=== PATIENT | female | born 1960 | race African-American/Black ===

== ENCOUNTER 2018-12-05 08:00 | Emergency (ER) | payer MEDICAID ==
[~2018-12-05] VITALS: Ht 157.5 cm; Wt 117.0 kg
[~2018-12-05 08:00] MED LIST: BENA20TA10; CYCL-108; LOVASTATIN; NAP5EC; OMEP20CA10; TRAM50TA3; TRIA1CAP35
[2018-12-05 11:55] VITALS: BP 159/66
== END 2018-12-05 12:02 | disposition home or self-care (01) ==
LOC: ER 08:24
DX: M79.671 Pain in right foot (principal); M25.571 Pain in right ankle and joints of right foot; M25.471 Effusion, right ankle; M79.89 Other specified soft tissue disorders; E11.9 Type 2 diabetes mellitus without complications; I10 Essential (primary) hypertension; Z79.899 Other long term (current) drug therapy
CPT/HCPCS: 73610; 73630; 99283

== ENCOUNTER 2019-04-21 07:50 | Emergency (ER) | payer MEDICAID ==
[~2019-04-21] VITALS: Ht 160 cm; Wt 113.0 kg
[~2019-04-21 07:50] MED LIST changes: -OMEP20CA10; +OMEP20CA5
[2019-04-21] MEDS ORDERED: IBUPROFEN 600MG TABLET PO ONE (09:15)
[2019-04-21 11:15] VITALS: BP 159/62
== END 2019-04-21 11:30 | disposition home or self-care (01) ==
LOC: ER 08:45
DX: S60.021A Contusion of right index finger without damage to nail, initial encounter (principal); W22.01XA Walked into wall, initial encounter; Y93.89 Activity, other specified; Y92.89 Other specified places as the place of occurrence of the external cause
CPT/HCPCS: 29130; 73140; 99283

== ENCOUNTER 2019-07-14 19:23 | Inpatient (IN) | payer MEDICAID ==
[~2019-07-14] VITALS: Ht 160 cm; Wt 133.8 kg
[~2019-07-14 19:23] MED LIST changes: -TRAM50TA3; +TRAM50TA3 PO
[2019-07-14 21:30] LABS: BASOPHILS % 0.8 % (0.0-2.0); EOSINOPHILS % 1.3 % (0.0-5.0); HEMATOCRIT. 33.6 % (36.0-48.0); LYMPHOCYTES % 15.2 % (20.0-50.0); MEAN CORPUSCULAR HEMOGLOBIN 28.3 pg (28.0-32.0); MEAN CORPUSCULAR VOLUME 86.1 fL (81.0-99.0); MEAN PLATELET VOLUME 9.5 fl (7.4-10.4); MONOCYTES % 7.9 % (2.0-8.0); NEUTROPHILS % 74.8 % (40.0-76.0); PLATELET 200 x1000/uL (130-400); RED CELL DISTRIBUTION WIDTH 15.5 % (11.6-14.6)
[2019-07-14 21:35] LABS: CHLORIDE 116 mEq/L (98-107)
[2019-07-14 21:36] LABS: INR 0.8; PARTIAL THROMBOPLASTIN TIME 27.3 sec (23.4-31.0)
[2019-07-14 21:46] LABS: PROTHROMBIN TIME 8.7 sec (9.6-11.0)
[2019-07-14] MEDS ORDERED: FUROSEMIDE 40MG/4ML VIAL IVP ONE (23:15)
[2019-07-14] MEDS ORDERED: CLONIDINE 0.1MG TABLET PO ONE (23:15)
[2019-07-14] MEDS ORDERED: ASPIRIN 81MG TABLET PO ONE (23:15)
[2019-07-15] MEDS ORDERED: CHLO25TA2 MT (11:50)
[2019-07-15] MEDS ORDERED: LEVO137T2 MT (11:50)
[2019-07-15] MEDS ORDERED: METH4TAB MT (11:50)
[2019-07-15] MEDS ORDERED: TRAM50TA3 MT (11:50)
[2019-07-15] MEDS ORDERED: AMLO10TA80 MT (11:50)
[2019-07-15] MEDS ORDERED: HYDR200T35 MT (11:50)
[2019-07-15] MEDS ORDERED: LISI-604 MT (11:50)
[2019-07-15] MEDS ORDERED: HYDR-4134 MT (11:50)
[2019-07-15 12:00] VITALS: BP 155/70
[2019-07-15] MEDS ORDERED: DOCUSATE SODIUM 100MG CAPSULE PO PRN (12:00)
[2019-07-15] MEDS ORDERED: ONDANSETRON HCL 4MG/2ML INJ IV PRN (12:00)
[2019-07-15] MEDS ORDERED: CLONIDINE 0.1MG TABLET PO PRN (12:00)
[2019-07-15] MEDS ORDERED: IPRATROPIUM/ALBUTEROL 0.5-3(2.5)MG/3ML NEB HHN PRN (12:00)
[2019-07-15] MEDS ORDERED: LORAZEPAM 0.5MG TABLET PO PRN (12:00)
[2019-07-15] MEDS ORDERED: HYDROCODONE/ACETAMINOPHEN 5/325MG TABLET PO PRN (12:00)
[2019-07-15] MEDS ORDERED: ACETAMINOPHEN 325MG TABLET PO PRN (12:00)
[2019-07-15] MEDS: AMLODIPINE 10MG TABLET PO SCH (12:30)
[2019-07-15] MEDS ORDERED: FUROSEMIDE 40MG/4ML VIAL IV SCH (12:30)
[2019-07-15] MEDS: LEVOTHYROXINE SODIUM 137MCG TABLET PO SCH (12:39)
[2019-07-15] MEDS: HYDRALAZINE HCL 25MG TABLET PO SCH ×2 (13:00→17:26)
[2019-07-15 14:43] VITALS: BP 155/70
[2019-07-15 15:38] LABS: PHOSPHORUS 5.4 mg/dL (2.5-4.9)
[2019-07-15 16:15] LABS: CLARITY URINE CLEAR (CLEAR); COLOR URINE YELLOW (YELLOW); KETONES URINE NEGATIVE (NEGATIVE); LEUKOCYTE ESTERASE URINE NEGATIVE (NEGATIVE); NITRITE URINE NEGATIVE (NEGATIVE); OCCULT BLOOD URINE TRACE (NEGATIVE); PH URINE 6.5 (4.5-8.0); PROTEIN URINE 4+ (NEGATIVE); SPECIFIC GRAVITY URINE 1.015 (1.005-1.030); UROBILINOGEN URINE 0.2 E.U./dL (0.2-1.0)
[2019-07-15 16:28] LABS: CANNABINOID URINE SCREEN NEGATIVE (NEGATIVE); METHADONE URINE SCREEN NEGATIVE (NEGATIVE); OPIATES URINE SCREEN NEGATIVE (NEGATIVE); PHENCYCLIDINE URINE SCREEN NEGATIVE (NEGATIVE)
[2019-07-15 16:29] LABS: *AMPHETAMINES SCREEN URINE NEGATIVE (NEGATIVE); *BARBITURATES SCREEN URINE NEGATIVE (NEGATIVE); *BENZODIAZEPINES SCREEN URINE NEGATIVE (NEGATIVE); *COCAINE SCREEN URINE NEGATIVE (NEGATIVE)
[2019-07-15 16:31] VITALS: BP 140/84
[2019-07-15 20:00] VITALS: BP 157/74
[2019-07-16] VITALS (7 sets, daily range): BP systolic 120–156; BP diastolic 49–70
[2019-07-16 07:28] LABS: BASOPHILS % 0.5 % (0.0-2.0); EOSINOPHILS % 1.6 % (0.0-5.0); HEMATOCRIT. 27.3 % (36.0-48.0); HEMOGLOBIN. 8.9 g/dL (12.0-16.0); LYMPHOCYTES % 19.5 % (20.0-50.0); MEAN CORPUSCULAR HEMOGLOBIN 28.2 pg (28.0-32.0); MEAN CORPUSCULAR VOLUME 86.2 fL (81.0-99.0); MEAN PLATELET VOLUME 9.6 fl (7.4-10.4); MONOCYTES % 10.3 % (2.0-8.0); NEUTROPHILS % 68.1 % (40.0-76.0); PLATELET 188 x1000/uL (130-400); RED BLOOD CELL COUNT 3.17 mill/uL (4.2-5.4); RED CELL DISTRIBUTION WIDTH 15.2 % (11.6-14.6)
[2019-07-16 07:42] LABS: PHOSPHORUS 5.6 mg/dL (2.5-4.9)
[2019-07-16] MEDS: HYDRALAZINE HCL 25MG TABLET PO SCH ×3 (08:51→17:56)
[2019-07-16] MEDS: AMLODIPINE 10MG TABLET PO SCH (08:51)
[2019-07-16] MEDS: LEVOTHYROXINE SODIUM 137MCG TABLET PO SCH (08:51)
[2019-07-16] MEDS ORDERED: FUROSEMIDE 40MG TABLET PO SCH (09:00)
[2019-07-16] MEDS ORDERED: DEXTROSE 50% WATER 50ML SYRINGE IV PRN (16:15)
[2019-07-16] MEDS ORDERED: LIP40 PO (16:16)
[2019-07-16] MEDS ORDERED: NIFE30TA83 MT (16:16)
[2019-07-16] MEDS ORDERED: BLOOD SUGAR DIAGNOSTIC STRIP TEST SCH (16:45)
[2019-07-16] MEDS ORDERED: INSULIN LISPRO 100 UNITS/ML SUBCUT SCH (17:15)
[2019-07-16] MEDS ORDERED: ENOXAPARIN 40MG/0.4ML SYR SUBCUT SCH (21:00)
[2019-07-16] MEDS ORDERED: ATORVASTATIN CALCIUM 40MG TABLET PO SCH (21:00)
[2019-07-17] MEDS ORDERED: LEVOTHYROXINE SODIUM 150MCG TABLET PO SCH (06:45)
== END 2019-07-16 20:00 | disposition home or self-care (01) | DRG 469 ==
LOC: ER 19:23 → 5WST 07-15 00:50 → EDBEDREQ 07-15 00:52 → ENRESERV 07-15 10:26
PROVIDERS: ADMIT Internal Medicine; ATTEND Internal Medicine
DX: N17.9 Acute kidney failure, unspecified (principal); J96.00 Acute respiratory failure, unspecified whether with hypoxia or hypercapnia; E43 Unspecified severe protein-calorie malnutrition; I13.0 Hypertensive heart and chronic kidney disease with heart failure and stage 1 through stage 4 chronic kidney disease, or unspecified chronic kidney disease; E11.22 Type 2 diabetes mellitus with diabetic chronic kidney disease; I50.9 Heart failure, unspecified; N18.4 Chronic kidney disease, stage 4 (severe); D64.9 Anemia, unspecified; E03.9 Hypothyroidism, unspecified; E78.5 Hyperlipidemia, unspecified; I16.0 Hypertensive urgency; M06.9 Rheumatoid arthritis, unspecified; M17.0 Bilateral primary osteoarthritis of knee; Z82.49 Family history of ischemic heart disease and other diseases of the circulatory system; Z83.3 Family history of diabetes mellitus; Z98.891 History of uterine scar from previous surgery; Z68.43 Body mass index [BMI] 50.0-59.9, adult; Z79.84 Long term (current) use of oral hypoglycemic drugs
CPT/HCPCS: 36415; 71045; 73620; 76770; 80048; 80061; 80305; 81003; 82550; 82962; 83036; 83735; 83880; 84100; 84443; 84484; 93005; 93306; 93970; 99285; J1940

== ENCOUNTER 2022-04-10 19:35 | Inpatient (IN) | payer MEDICAID ==
[~2022-04-10] VITALS: Ht 160 cm; Wt 118.8 kg
[~2022-04-10 19:35] MED LIST changes: +ASPI-1497 PO; +ATOR20TA65 MT; -BENA20TA10; +CYAN-50 MT; -CYCL-108; +FERR325T6 MT; +FURO40TA5 PO; +INSU100C6 SQ; +INSU100I28 SQ; +LEVO200T8 MT; -LOVASTATIN; -NAP5EC; +NIFE-32 PO; -OMEP20CA5; +PANT40TA51 PO; -TRAM50TA3 PO; -TRIA1CAP35
[2022-04-10 20:50] LABS: HEMATOCRIT. 34.1 % (36.0-48.0); HEMOGLOBIN. 10.6 g/dL (12.0-16.0); MEAN CORPUSCULAR HEMOGLOBIN 26.1 pg (28.0-32.0); MEAN CORPUSCULAR VOLUME 84.2 fL (81.0-99.0); MEAN PLATELET VOLUME 9.8 fl (7.4-10.4); PLATELET 185 x1000/uL (130-400); RED BLOOD CELL COUNT 4.05 mill/uL (4.2-5.4); RED CELL DISTRIBUTION WIDTH 14.3 % (11.6-14.6)
[2022-04-10 20:59] LABS: CHLORIDE 111 mEq/L (98-107)
[2022-04-10 21:12] LABS: BG BASE EXCESS -5.5 mmol/L (-2.0-2.0); BG CARBOXYHEMOGLOBIN 1.4 % (0.5-1.5); BG DEOXYHEMOGLOBIN 19.6 % (0.0-5.0); BG FRACTION INSPIRED OXYGEN 100; BG HCO3 ACT 19.4 mmol/L (22.0-26.0); BG METHEMOGLOBIN 0.2 % (0.0-1.5); BG OXYGEN SATURATION 80.1 % (92.0-98.5); BG OXYHEMOGLOBIN 78.8 % (94.0-97.0); BG PCO2 35.9 mmHg (35.0-45.0); BG PO2 46.2 mmHg (75.0-100.0); BG SAMPLE SITE LEFT RADIAL; BG VENT MODE MASK - NRB
[2022-04-10 22:13] LABS: PLATELET ESTIMATE NORMAL
[2022-04-10] MEDS ORDERED: ENOXAPARIN 80MG/0.8ML SYR SUBCUT ONE (22:15)
[2022-04-10 23:24] LABS: BG BASE EXCESS -6.2 mmol/L (-2.0-2.0); BG CARBOXYHEMOGLOBIN 0.5 % (0.5-1.5); BG DEOXYHEMOGLOBIN 2.6 % (0.0-5.0); BG FRACTION INSPIRED OXYGEN 100; BG HCO3 ACT 18.7 mmol/L (22.0-26.0); BG METHEMOGLOBIN 0.2 % (0.0-1.5); BG OXYGEN SATURATION 97.4 % (92.0-98.5); BG OXYHEMOGLOBIN 96.7 % (94.0-97.0); BG PCO2 34.9 mmHg (35.0-45.0); BG PH 7.346 (7.350-7.450); BG PO2 105.3 mmHg (75.0-100.0); BG SAMPLE SITE LEFT RADIAL; BG TOTAL HEMOGLOBIN 11.6 g/dL (12.0-18.0); BG VENT MODE MASK - BIPAP
[2022-04-11] VITALS (11 sets, daily range): BP systolic 154–193; BP diastolic 76–93
[2022-04-11] MEDS: CLONIDINE 0.1MG TABLET PO PRN (02:51)
[2022-04-11] MEDS ORDERED: CEFTRIAXONE 1 G PREMIX 50 ML IV SCH (06:30)
[2022-04-11] MEDS ORDERED: DEXTROSE 50% WATER 50ML SYRINGE IV PRN (06:30)
[2022-04-11] MEDS ORDERED: AZITHROMYCIN 500 MG in DEXT 5% WATER 250 ML IV SCH (06:30)
[2022-04-11] MEDS: BLOOD SUGAR DIAGNOSTIC STRIP TEST SCH ×4 (07:30→21:08)
[2022-04-11 07:55] LABS: CLARITY URINE CLOUDY (CLEAR); COLOR URINE YELLOW (YELLOW); KETONES URINE NEGATIVE (NEGATIVE); LEUKOCYTE ESTERASE URINE NEGATIVE (NEGATIVE); NITRITE URINE NEGATIVE (NEGATIVE); OCCULT BLOOD URINE TRACE (NEGATIVE); PROTEIN URINE 4+ (NEGATIVE); SPECIFIC GRAVITY URINE 1.021 (1.005-1.030); UROBILINOGEN URINE 0.2 E.U./dL (0.2-1.0)
[2022-04-11] MEDS: IPRATROPIUM/ALBUTEROL 0.5-3(2.5)MG/3ML NEB HHN PRN (07:59)
[2022-04-11] MEDS ORDERED: TACR1CAP PO (08:51)
[2022-04-11] MEDS: AZITHROMYCIN 500MG in DEXTROSE 5% WATER 250ML IV SCH (09:10)
[2022-04-11] MEDS: INSULIN LISPRO 100 UNITS/ML SUBCUT SCH ×4 (09:14→21:32)
[2022-04-11] MEDS ORDERED: FUROSEMIDE 40MG/4ML VIAL IVP SCH (09:30)
[2022-04-11] MEDS: CEFTRIAXONE 1,000 MG in DEXTROSE 5% WATER 50 ML IV SCH (10:28)
[2022-04-11 11:24] LABS: *AMPHETAMINES SCREEN URINE NEGATIVE (NEGATIVE); *BARBITURATES SCREEN URINE NEGATIVE (NEGATIVE); *BENZODIAZEPINES SCREEN URINE NEGATIVE (NEGATIVE); *COCAINE SCREEN URINE NEGATIVE (NEGATIVE); CANNABINOID URINE SCREEN NEGATIVE (NEGATIVE); METHADONE URINE SCREEN NEGATIVE (NEGATIVE); OPIATES URINE SCREEN NEGATIVE (NEGATIVE); PHENCYCLIDINE URINE SCREEN NEGATIVE (NEGATIVE)
[2022-04-11 13:17] LABS: CREATINE KINASE 68 IU/L (26-192); CREATINE KINASE MB FRACTION < 1.0 ng/mL (0.5-3.6); HDL CHOLESTEROL 68 mg/dL (40-59); LDL CHOLESTEROL 49 mg/dL (5-100)
[2022-04-11] MEDS ORDERED: AMLODIPINE 10MG TABLET PO SCH (13:30)
[2022-04-11] MEDS: PANTOPRAZOLE 40MG DR TABLET PO SCH (15:11)
[2022-04-11] MEDS: ISOSORBIDE DINITRATE 10MG TABLET PO SCH ×2 (15:11→17:45)
[2022-04-11] MEDS: TACROLIMUS 1MG CAPSULE PO SCH ×2 (15:11→21:35)
[2022-04-11] MEDS: ATORVASTATIN CALCIUM 20MG TABLET PO SCH (15:12)
[2022-04-11] MEDS: HYDRALAZINE HCL 25MG TABLET PO SCH ×2 (15:12→23:00)
[2022-04-11 16:52] LABS: CREATINE KINASE 73 IU/L (26-192); CREATINE KINASE MB FRACTION < 1.0 ng/mL (0.5-3.6)
[2022-04-11] MEDS: LEVOTHYROXINE SODIUM 200MCG TABLET PO SCH (17:44)
[2022-04-11] MEDS: FUROSEMIDE 40MG/4ML VIAL IVP SCH (17:44)
[2022-04-11] MEDS: NIFEDIPINE XL 60MG TAB PO SCH (21:35)
[2022-04-11] MEDS: ENOXAPARIN 40MG/0.4ML SYR SUBCUT SCH (21:36)
[2022-04-12] VITALS (14 sets, daily range): BP systolic 129–162; BP diastolic 53–97
[2022-04-12] MEDS: HYDRALAZINE HCL 25MG TABLET PO SCH ×3 (06:16→22:35)
[2022-04-12] MEDS: FUROSEMIDE 40MG/4ML VIAL IVP SCH (06:16)
[2022-04-12] MEDS: INSULIN LISPRO 100 UNITS/ML SUBCUT SCH ×4 (08:00→21:35)
[2022-04-12] MEDS: BLOOD SUGAR DIAGNOSTIC STRIP TEST SCH ×4 (08:12→21:30)
[2022-04-12] MEDS: CEFTRIAXONE 1,000 MG in DEXTROSE 5% WATER 50 ML IV SCH (08:37)
[2022-04-12] MEDS: NIFEDIPINE XL 60MG TAB PO SCH ×2 (08:37→21:31)
[2022-04-12] MEDS: ISOSORBIDE DINITRATE 10MG TABLET PO SCH ×3 (08:38→17:15)
[2022-04-12] MEDS: TACROLIMUS 1MG CAPSULE PO SCH ×2 (08:38→17:15)
[2022-04-12] MEDS: PANTOPRAZOLE 40MG DR TABLET PO SCH (08:38)
[2022-04-12] MEDS: LEVOTHYROXINE SODIUM 200MCG TABLET PO SCH (08:38)
[2022-04-12] MEDS: ATORVASTATIN CALCIUM 20MG TABLET PO SCH (08:39)
[2022-04-12 08:47] LABS: BG BASE EXCESS -6.1 mmol/L (-2.0-2.0); BG CARBOXYHEMOGLOBIN 0.1 % (0.5-1.5); BG DEOXYHEMOGLOBIN 10.8 % (0.0-5.0); BG FRACTION INSPIRED OXYGEN 100; BG HCO3 ACT 19.1 mmol/L (22.0-26.0); BG METHEMOGLOBIN 0.2 % (0.0-1.5); BG OXYGEN SATURATION 89.2 % (92.0-98.5); BG OXYHEMOGLOBIN 88.9 % (94.0-97.0); BG PCO2 36.5 mmHg (35.0-45.0); BG PH 7.336 (7.350-7.450); BG PO2 57.1 mmHg (75.0-100.0); BG SAMPLE SITE RIGHT RADIAL; BG TOTAL HEMOGLOBIN 10.6 g/dL (12.0-18.0); BG TOTAL RESPIRATORY RATE 50 b/min; BG VENT MODE MASK - BIPAP
[2022-04-12] MEDS: AZITHROMYCIN 500MG in DEXTROSE 5% WATER 250ML IV SCH (09:02)
[2022-04-12] MEDS ORDERED: POLYETHYLENE GLYCOL 3350 (17GM) 1 DOSE PACK PO NR (14:15)
[2022-04-12] MEDS: IPRATROPIUM/ALBUTEROL 0.5-3(2.5)MG/3ML NEB HHN SCH (20:38)
[2022-04-12] MEDS: ENOXAPARIN 40MG/0.4ML SYR SUBCUT SCH (21:31)
[2022-04-13] VITALS (49 sets, daily range): BP systolic 104–169; BP diastolic 42–123
[2022-04-13] MEDS: IPRATROPIUM/ALBUTEROL 0.5-3(2.5)MG/3ML NEB HHN SCH ×5 (00:40→21:10)
[2022-04-13] MEDS: HYDRALAZINE HCL 25MG TABLET PO SCH ×3 (05:55→22:00)
[2022-04-13 05:57] LABS: BASOPHILS % 0.3 % (0.0-2.0); EOSINOPHILS % 0.2 % (0.0-5.0); HEMATOCRIT. 30.8 % (36.0-48.0); HEMOGLOBIN. 9.7 g/dL (12.0-16.0); LYMPHOCYTES % 7.7 % (20.0-50.0); MEAN CORPUSCULAR HEMOGLOBIN 26.3 pg (28.0-32.0); MEAN CORPUSCULAR VOLUME 83.4 fL (81.0-99.0); MEAN PLATELET VOLUME 10.4 fl (7.4-10.4); MONOCYTES % 5.9 % (2.0-8.0); NEUTROPHILS % 85.9 % (40.0-76.0); PLATELET 202 x1000/uL (130-400); RED CELL DISTRIBUTION WIDTH 14.8 % (11.6-14.6)
[2022-04-13 06:20] LABS: CHLORIDE 111 mEq/L (98-107)
[2022-04-13 06:29] LABS: PHOSPHORUS 4.3 mg/dL (2.5-4.9)
[2022-04-13] MEDS: BLOOD SUGAR DIAGNOSTIC STRIP TEST SCH ×4 (07:30→23:53)
[2022-04-13] MEDS: LEVOTHYROXINE SODIUM 150MCG TABLET PO SCH (07:30)
[2022-04-13] MEDS: INSULIN LISPRO 100 UNITS/ML SUBCUT SCH ×4 (08:00→23:53)
[2022-04-13] MEDS ORDERED: FENTANYL CITRATE/PF 2,500 MCG in SODIUM CHLORIDE 0.9% 200 ML IV PRN (08:15)
[2022-04-13] MEDS: PROPOFOL 10MG/ML 100ML 100 ML IV PRN ×4 (08:25→18:06)
[2022-04-13] MEDS: FENTANYL 2500MCG/250ML PMX 250 ML IV PRN (08:32)
[2022-04-13] MEDS: NIFEDIPINE XL 60MG TAB PO SCH ×2 (09:00→21:35)
[2022-04-13] MEDS: ATORVASTATIN CALCIUM 20MG TABLET PO SCH (09:00)
[2022-04-13] MEDS: PANTOPRAZOLE 40MG DR TABLET PO SCH (09:00)
[2022-04-13] MEDS: ISOSORBIDE DINITRATE 10MG TABLET PO SCH ×3 (09:00→18:03)
[2022-04-13] MEDS: TACROLIMUS 1MG CAPSULE PO SCH ×2 (09:00→18:03)
[2022-04-13] MEDS ORDERED: ETOMIDATE 2MG/ML 10ML VIAL IV ONE (09:06)
[2022-04-13] MEDS ORDERED: VECURONIUM BROMIDE 10 MG/VIAL IV ONE (09:06)
[2022-04-13] MEDS ORDERED: SODIUM CHLORIDE 0.9% 10ML VIAL ONE (09:06)
[2022-04-13 09:10] LABS: BG BASE EXCESS -8.7 mmol/L (-2.0-2.0); BG CARBOXYHEMOGLOBIN 0.3 % (0.5-1.5); BG FRACTION INSPIRED OXYGEN 100; BG HCO3 ACT 19.8 mmol/L (22.0-26.0); BG METHEMOGLOBIN 0.3 % (0.0-1.5); BG OXYGEN SATURATION 80.9 % (92.0-98.5); BG OXYHEMOGLOBIN 80.4 % (94.0-97.0); BG PCO2 55.2 mmHg (35.0-45.0); BG PH 7.173 (7.350-7.450); BG PO2 54.1 mmHg (75.0-100.0); BG SAMPLE SITE LEFT RADIAL; BG TOTAL HEMOGLOBIN 10.7 g/dL (12.0-18.0); BG VENT MODE VENT - AC
[2022-04-13] MEDS ORDERED: MAGNESIUM 2 G PREMIX 50 ML IV NR (10:00)
[2022-04-13] MEDS ORDERED: MIDAZOLAM HCL 100 MG in SODIUM CHLORIDE 0.9% 80 ML IV PRN (11:45)
[2022-04-13] MEDS: MEROPENEM 1,000 MG in SODIUM CHLORIDE 0.9% 100 ML IV SCH ×2 (11:53→23:52)
[2022-04-13] MEDS ORDERED: VANCOMYCIN 1,750 MG in DEXT 5% WATER 250 ML IV NR (12:00)
[2022-04-13 12:09] LABS: BG BASE EXCESS -8.3 mmol/L (-2.0-2.0); BG CARBOXYHEMOGLOBIN 0.3 % (0.5-1.5); BG DEOXYHEMOGLOBIN 1.5 % (0.0-5.0); BG HCO3 ACT 19.6 mmol/L (22.0-26.0); BG METHEMOGLOBIN 0.4 % (0.0-1.5); BG OXYGEN SATURATION 98.5 % (92.0-98.5); BG OXYHEMOGLOBIN 97.8 % (94.0-97.0); BG PCO2 51.2 mmHg (35.0-45.0); BG PO2 189.4 mmHg (75.0-100.0); BG SAMPLE SITE LEFT RADIAL; BG TOTAL HEMOGLOBIN 10.2 g/dL (12.0-18.0); BG VENT MODE VENT - AC
[2022-04-13] MEDS: AZITHROMYCIN 500MG in DEXTROSE 5% WATER 250ML IV SCH (13:02)
[2022-04-13] MEDS: CEFTRIAXONE 1,000 MG in DEXTROSE 5% WATER 50 ML IV SCH (13:02)
[2022-04-13] MEDS: METHYLPREDNISOLONE SOD SUCC 125 MG/2 ML VIAL IV SCH ×2 (13:21→21:35)
[2022-04-13] MEDS ORDERED: LIDOCAINE HCL 1% 10 MG/ML 10ML VIAL ONE (13:41)
[2022-04-13] MEDS: SULFAMETHOXAZOLE/TRIMETHOPRIM 200-40 MG/5ML 5ML ORAL SYR PO SCH ×2 (14:51→21:35)
[2022-04-13 17:15] LABS: BG BASE EXCESS -8.2 mmol/L (-2.0-2.0); BG CARBOXYHEMOGLOBIN 0.3 % (0.5-1.5); BG DEOXYHEMOGLOBIN 1.9 % (0.0-5.0); BG HCO3 ACT 18.8 mmol/L (22.0-26.0); BG METHEMOGLOBIN 0.6 % (0.0-1.5); BG OXYGEN SATURATION 98.1 % (92.0-98.5); BG OXYHEMOGLOBIN 97.2 % (94.0-97.0); BG PH 7.238 (7.350-7.450); BG PO2 138.3 mmHg (75.0-100.0); BG SAMPLE SITE LEFT RADIAL; BG TOTAL HEMOGLOBIN 9.5 g/dL (12.0-18.0); BG VENT MODE VENT - AC
[2022-04-13] MEDS: ENOXAPARIN 40MG/0.4ML SYR SUBCUT SCH (21:35)
[2022-04-14] VITALS (90 sets, daily range): BP systolic 71–147; BP diastolic 41–67
[2022-04-14] MEDS: MIDAZOLAM 100MG/100ML PMX 100 ML IV PRN (02:00)
[2022-04-14] MEDS: PROPOFOL 10MG/ML 100ML 100 ML IV PRN ×5 (02:01→20:54)
[2022-04-14] MEDS: IPRATROPIUM/ALBUTEROL 0.5-3(2.5)MG/3ML NEB HHN PRN (02:16)
[2022-04-14] MEDS: METHYLPREDNISOLONE SOD SUCC 125 MG/2 ML VIAL IV SCH ×3 (05:58→21:18)
[2022-04-14] MEDS: HYDRALAZINE HCL 25MG TABLET PO SCH (05:58)
[2022-04-14] MEDS: INSULIN LISPRO 100 UNITS/ML SUBCUT SCH ×3 (05:58→17:47)
[2022-04-14] MEDS: LEVOTHYROXINE SODIUM 150MCG TABLET PO SCH (05:59)
[2022-04-14] MEDS: BLOOD SUGAR DIAGNOSTIC STRIP TEST SCH ×3 (05:59→17:55)
[2022-04-14 06:00] LABS: HEMATOCRIT. 28.4 % (36.0-48.0); HEMOGLOBIN. 8.9 g/dL (12.0-16.0); MEAN CORPUSCULAR HEMOGLOBIN 26.5 pg (28.0-32.0); MEAN CORPUSCULAR VOLUME 84.4 fL (81.0-99.0); MEAN PLATELET VOLUME 10.5 fl (7.4-10.4); PLATELET 159 x1000/uL (130-400); RED BLOOD CELL COUNT 3.36 mill/uL (4.2-5.4); RED CELL DISTRIBUTION WIDTH 14.3 % (11.6-14.6)
[2022-04-14] MEDS: SULFAMETHOXAZOLE/TRIMETHOPRIM 200-40 MG/5ML 5ML ORAL SYR PO SCH ×3 (06:00→21:18)
[2022-04-14] MEDS: FENTANYL 2500MCG/250ML PMX 250 ML IV PRN (06:21)
[2022-04-14 06:23] LABS: CHLORIDE 107 mEq/L (98-107); PHOSPHORUS 7.6 mg/dL (2.5-4.9)
[2022-04-14] MEDS ORDERED: LIDOCAINE HCL/PF 1% 10 MG/ML 5ML VIAL ONE (07:15)
[2022-04-14] MEDS: AZITHROMYCIN 500MG in DEXTROSE 5% WATER 250ML IV SCH (07:58)
[2022-04-14] MEDS: IPRATROPIUM/ALBUTEROL 0.5-3(2.5)MG/3ML NEB HHN SCH ×3 (08:12→20:23)
[2022-04-14] MEDS ORDERED: INSULIN GLARGINE 100 UNITS/ML SUBCUT NR (08:30)
[2022-04-14] MEDS: ATORVASTATIN CALCIUM 20MG TABLET PO SCH (09:25)
[2022-04-14] MEDS: TACROLIMUS 1MG CAPSULE PO SCH ×2 (09:25→17:16)
[2022-04-14] MEDS: PANTOPRAZOLE 40MG DR TABLET PO SCH (09:25)
[2022-04-14] MEDS: SODIUM BICARBONATE 150 MEQ in DEXTROSE 5% WATER 1,000 ML IV SCH (09:29)
[2022-04-14 09:52] LABS: BG BASE EXCESS -8.3 mmol/L (-2.0-2.0); BG CARBOXYHEMOGLOBIN 0.4 % (0.5-1.5); BG DEOXYHEMOGLOBIN 3.5 % (0.0-5.0); BG FRACTION INSPIRED OXYGEN 60; BG HCO3 ACT 17.2 mmol/L (22.0-26.0); BG METHEMOGLOBIN 0.3 % (0.0-1.5); BG OXYGEN SATURATION 96.5 % (92.0-98.5); BG OXYHEMOGLOBIN 95.8 % (94.0-97.0); BG PCO2 35.2 mmHg (35.0-45.0); BG PH 7.307 (7.350-7.450); BG PO2 88.5 mmHg (75.0-100.0); BG SAMPLE SITE RIGHT RADIAL; BG TOTAL HEMOGLOBIN 7.6 g/dL (12.0-18.0); BG VENT MODE VENT - AC
[2022-04-14] MEDS: MEROPENEM 1,000 MG in SODIUM CHLORIDE 0.9% 100 ML IV SCH ×2 (10:28→22:02)
[2022-04-14] MEDS ORDERED: NOREPINEPHRINE 32 MG in DEXT 5% WATER 218 ML IV PRN (10:30)
[2022-04-14] MEDS ORDERED: INSULIN LISPRO 100 UNITS/ML SUBCUT NR ×2 (12:00→18:00)
[2022-04-14] MEDS: MIDODRINE HCL 5MG TABLET PO SCH ×2 (13:00→17:15)
[2022-04-14] MEDS ORDERED: VANCOMYCIN 500MG PREMIX 100 ML IV SCH (14:00)
[2022-04-14 15:48] LABS: PLATELET ESTIMATE NORMAL
[2022-04-14] MEDS: ENOXAPARIN 40MG/0.4ML SYR SUBCUT SCH (20:54)
[2022-04-15] VITALS (97 sets, daily range): BP systolic 111–170; BP diastolic 46–71
[2022-04-15] MEDS: INSULIN LISPRO 100 UNITS/ML SUBCUT SCH ×5 (00:06→23:24)
[2022-04-15] MEDS: BLOOD SUGAR DIAGNOSTIC STRIP TEST SCH ×5 (00:06→23:24)
[2022-04-15] MEDS: IPRATROPIUM/ALBUTEROL 0.5-3(2.5)MG/3ML NEB HHN SCH ×4 (02:21→20:52)
[2022-04-15] MEDS: PROPOFOL 10MG/ML 100ML 100 ML IV PRN (03:41)
[2022-04-15 05:34] LABS: HEMATOCRIT. 27.6 % (36.0-48.0); HEMOGLOBIN. 8.7 g/dL (12.0-16.0); MEAN CORPUSCULAR HEMOGLOBIN 26.2 pg (28.0-32.0); MEAN PLATELET VOLUME 10.3 fl (7.4-10.4); PLATELET 173 x1000/uL (130-400); RED BLOOD CELL COUNT 3.33 mill/uL (4.2-5.4); RED CELL DISTRIBUTION WIDTH 13.9 % (11.6-14.6)
[2022-04-15] MEDS: LEVOTHYROXINE SODIUM 150MCG TABLET PO SCH (05:39)
[2022-04-15] MEDS: METHYLPREDNISOLONE SOD SUCC 125 MG/2 ML VIAL IV SCH ×3 (05:39→21:44)
[2022-04-15] MEDS: SULFAMETHOXAZOLE/TRIMETHOPRIM 200-40 MG/5ML 5ML ORAL SYR PO SCH ×3 (05:40→21:45)
[2022-04-15 05:43] LABS: CHLORIDE 103 mEq/L (98-107)
[2022-04-15 07:52] LABS: BG BASE EXCESS -6.7 mmol/L (-2.0-2.0); BG CARBOXYHEMOGLOBIN 0.3 % (0.5-1.5); BG DEOXYHEMOGLOBIN 7.9 % (0.0-5.0); BG HCO3 ACT 19.8 mmol/L (22.0-26.0); BG METHEMOGLOBIN 0.3 % (0.0-1.5); BG OXYGEN SATURATION 92.1 % (92.0-98.5); BG OXYHEMOGLOBIN 91.5 % (94.0-97.0); BG PCO2 43.9 mmHg (35.0-45.0); BG PH 7.272 (7.350-7.450); BG PO2 69.5 mmHg (75.0-100.0); BG SAMPLE SITE RIGHT RADIAL; BG TOTAL HEMOGLOBIN 8.9 g/dL (12.0-18.0); BG VENT MODE VENT - AC
[2022-04-15] MEDS: AZITHROMYCIN 500MG in DEXTROSE 5% WATER 250ML IV SCH (08:15)
[2022-04-15] MEDS: ATORVASTATIN CALCIUM 20MG TABLET PO SCH (08:26)
[2022-04-15] MEDS: PANTOPRAZOLE SODIUM 40 MG/VIAL IV SCH (08:26)
[2022-04-15] MEDS: MIDODRINE HCL 5MG TABLET PO SCH ×3 (08:26→16:19)
[2022-04-15] MEDS ORDERED: BISACODYL 10MG SUPP PR NR (10:00)
[2022-04-15] MEDS: TACROLIMUS 1MG/PACKET GT SCH ×2 (10:15→16:19)
[2022-04-15] MEDS: MEROPENEM 1,000 MG in SODIUM CHLORIDE 0.9% 100 ML IV SCH ×2 (10:16→23:23)
[2022-04-15] MEDS: INSULIN GLARGINE 100 UNITS/ML SUBCUT SCH (10:16)
[2022-04-15 11:17] LABS: INR 0.9; PARTIAL THROMBOPLASTIN TIME 30.9 sec (23.4-31.0); PROTHROMBIN TIME 10.1 sec (9.6-11.0)
[2022-04-15] MEDS ORDERED: LIDOCAINE HCL 1% 10 MG/ML 10ML VIAL ONE (12:56)
[2022-04-15] MEDS: SODIUM BICARBONATE 150 MEQ in DEXTROSE 5% WATER 1,000 ML IV SCH (14:02)
[2022-04-15] MEDS: FENTANYL 2500MCG/250ML PMX 250 ML IV PRN (16:20)
[2022-04-15 18:22] LABS: PLATELET ESTIMATE NORMAL
[2022-04-15] MEDS: MIDAZOLAM 100MG/100ML PMX 100 ML IV PRN (19:46)
[2022-04-15] MEDS: ENOXAPARIN 40MG/0.4ML SYR SUBCUT SCH (21:45)
[2022-04-16] VITALS (61 sets, daily range): BP systolic 119–166; BP diastolic 52–79
[2022-04-16] MEDS: IPRATROPIUM/ALBUTEROL 0.5-3(2.5)MG/3ML NEB HHN SCH ×4 (02:25→20:41)
[2022-04-16] MEDS: BLOOD SUGAR DIAGNOSTIC STRIP TEST SCH ×4 (05:18→23:45)
[2022-04-16 05:38] LABS: HEMATOCRIT. 25.1 % (36.0-48.0); MEAN CORPUSCULAR HEMOGLOBIN 26.1 pg (28.0-32.0); MEAN CORPUSCULAR VOLUME 82.4 fL (81.0-99.0); MEAN PLATELET VOLUME 10.4 fl (7.4-10.4); PLATELET 192 x1000/uL (130-400); RED BLOOD CELL COUNT 3.05 mill/uL (4.2-5.4); RED CELL DISTRIBUTION WIDTH 14.3 % (11.6-14.6)
[2022-04-16 05:54] LABS: CHLORIDE 101 mEq/L (98-107)
[2022-04-16] MEDS: SULFAMETHOXAZOLE/TRIMETHOPRIM 200-40 MG/5ML 5ML ORAL SYR PO SCH ×3 (05:56→21:35)
[2022-04-16] MEDS: METHYLPREDNISOLONE SOD SUCC 125 MG/2 ML VIAL IV SCH ×3 (05:56→21:36)
[2022-04-16] MEDS: INSULIN LISPRO 100 UNITS/ML SUBCUT SCH ×7 (05:57→23:45)
[2022-04-16] MEDS: LEVOTHYROXINE SODIUM 150MCG TABLET PO SCH (05:58)
[2022-04-16] MEDS ORDERED: BISACODYL 10MG SUPP PR PRN (06:00)
[2022-04-16 06:43] LABS: PHOSPHORUS 8.4 mg/dL (2.5-4.9)
[2022-04-16 07:31] LABS: BG BASE EXCESS -2.5 mmol/L (-2.0-2.0); BG CARBOXYHEMOGLOBIN 0.1 % (0.5-1.5); BG DEOXYHEMOGLOBIN 4.5 % (0.0-5.0); BG FRACTION INSPIRED OXYGEN 45; BG HCO3 ACT 22.9 mmol/L (22.0-26.0); BG METHEMOGLOBIN 0.2 % (0.0-1.5); BG OXYGEN SATURATION 95.5 % (92.0-98.5); BG OXYHEMOGLOBIN 95.2 % (94.0-97.0); BG PCO2 41.9 mmHg (35.0-45.0); BG PH 7.355 (7.350-7.450); BG PO2 89.1 mmHg (75.0-100.0); BG SAMPLE SITE RIGHT RADIAL; BG TOTAL HEMOGLOBIN 7.8 g/dL (12.0-18.0); BG VENT MODE VENT - AC
[2022-04-16] MEDS ORDERED: LIDOCAINE HCL 1% 10 MG/ML 10ML VIAL ONE (07:57)
[2022-04-16] MEDS ORDERED: HEPARIN 1000 UNITS/ML 10ML ONE (07:58)
[2022-04-16] MEDS: MIDODRINE HCL 5MG TABLET PO SCH ×3 (09:00→16:52)
[2022-04-16] MEDS: PANTOPRAZOLE SODIUM 40 MG/VIAL IV SCH (09:10)
[2022-04-16] MEDS: ATORVASTATIN CALCIUM 20MG TABLET PO SCH (09:10)
[2022-04-16] MEDS: TACROLIMUS 1MG/PACKET GT SCH ×2 (09:11→17:53)
[2022-04-16] MEDS: INSULIN GLARGINE 100 UNITS/ML SUBCUT SCH (09:15)
[2022-04-16] MEDS ORDERED: INSULIN GLARGINE 100 UNITS/ML SUBCUT NR (10:00)
[2022-04-16] MEDS ORDERED: PROPOFOL 10MG/ML 100ML 100 ML IV PRN (10:00)
[2022-04-16] MEDS: MEROPENEM 1,000 MG in SODIUM CHLORIDE 0.9% 100 ML IV SCH ×2 (11:04→23:35)
[2022-04-16] MEDS: CALCIUM ACETATE 667MG CAPSULE NG SCH ×2 (13:29→21:35)
[2022-04-16] MEDS: CLONIDINE 0.1MG TABLET PO PRN (15:35)
[2022-04-16] MEDS: ENOXAPARIN 40MG/0.4ML SYR SUBCUT SCH (21:35)
[2022-04-17] VITALS (97 sets, daily range): BP systolic 99–186; BP diastolic 47–152
[2022-04-17] MEDS: FENTANYL 2500MCG/250ML PMX 250 ML IV PRN (00:32)
[2022-04-17] MEDS: IPRATROPIUM/ALBUTEROL 0.5-3(2.5)MG/3ML NEB HHN SCH ×4 (00:41→20:30)
[2022-04-17 01:37] LABS: PLATELET ESTIMATE NORMAL
[2022-04-17 05:33] LABS: HEMATOCRIT. 25.7 % (36.0-48.0); HEMOGLOBIN. 8.2 g/dL (12.0-16.0); MEAN CORPUSCULAR HEMOGLOBIN 26.3 pg (28.0-32.0); MEAN CORPUSCULAR VOLUME 82.2 fL (81.0-99.0); MEAN PLATELET VOLUME 10.1 fl (7.4-10.4); PLATELET 217 x1000/uL (130-400); RED BLOOD CELL COUNT 3.13 mill/uL (4.2-5.4); RED CELL DISTRIBUTION WIDTH 14.4 % (11.6-14.6)
[2022-04-17] MEDS: SULFAMETHOXAZOLE/TRIMETHOPRIM 200-40 MG/5ML 5ML ORAL SYR PO SCH ×3 (05:37→21:01)
[2022-04-17] MEDS: METHYLPREDNISOLONE SOD SUCC 125 MG/2 ML VIAL IV SCH ×3 (05:37→21:01)
[2022-04-17] MEDS: LEVOTHYROXINE SODIUM 150MCG TABLET PO SCH (05:37)
[2022-04-17] MEDS: CALCIUM ACETATE 667MG CAPSULE NG SCH ×3 (05:37→21:01)
[2022-04-17 05:43] LABS: CHLORIDE 102 mEq/L (98-107)
[2022-04-17] MEDS: INSULIN LISPRO 100 UNITS/ML SUBCUT SCH ×8 (06:04→23:47)
[2022-04-17] MEDS: BLOOD SUGAR DIAGNOSTIC STRIP TEST SCH ×4 (06:07→23:45)
[2022-04-17] MEDS: MIDODRINE HCL 5MG TABLET PO SCH ×3 (09:00→16:17)
[2022-04-17 09:02] LABS: NUCLEATED RED BLOOD CELLS 2 /100 WBC
[2022-04-17 09:05] LABS: PLATELET ESTIMATE NORMAL
[2022-04-17 10:11] LABS: BG BASE EXCESS -1.2 mmol/L (-2.0-2.0); BG CARBOXYHEMOGLOBIN 0.3 % (0.5-1.5); BG DEOXYHEMOGLOBIN 2.6 % (0.0-5.0); BG FRACTION INSPIRED OXYGEN 60; BG METHEMOGLOBIN 0.3 % (0.0-1.5); BG OXYGEN SATURATION 97.4 % (92.0-98.5); BG OXYHEMOGLOBIN 96.8 % (94.0-97.0); BG PH 7.423 (7.350-7.450); BG PO2 102.8 mmHg (75.0-100.0); BG SAMPLE SITE RIGHT RADIAL; BG TOTAL HEMOGLOBIN 9.2 g/dL (12.0-18.0); BG VENT MODE VENT - AC
[2022-04-17] MEDS ORDERED: SODIUM POLYSTYRENE SULFONATE 15 G/60 ML BOT PO NR (10:30)
[2022-04-17] MEDS: PROPOFOL 10MG/ML 100ML 100 ML IV PRN ×2 (10:44→20:59)
[2022-04-17] MEDS: INSULIN GLARGINE 100 UNITS/ML SUBCUT SCH (10:44)
[2022-04-17] MEDS: ATORVASTATIN CALCIUM 20MG TABLET PO SCH (10:45)
[2022-04-17] MEDS: MEROPENEM 1,000 MG in SODIUM CHLORIDE 0.9% 100 ML IV SCH ×2 (10:45→22:04)
[2022-04-17] MEDS: PANTOPRAZOLE SODIUM 40 MG/VIAL IV SCH (10:45)
[2022-04-17] MEDS: CLONIDINE 0.1MG TABLET PO PRN ×2 (10:45→16:26)
[2022-04-17] MEDS: AMLODIPINE 5MG TABLET PO SCH ×2 (10:46→21:02)
[2022-04-17] MEDS: TACROLIMUS 1MG/PACKET GT SCH ×2 (14:29→16:24)
[2022-04-17] MEDS: ENOXAPARIN 40MG/0.4ML SYR SUBCUT SCH (21:04)
[2022-04-18] VITALS (97 sets, daily range): BP systolic 97–174; BP diastolic 53–99
[2022-04-18] MEDS: METHYLPREDNISOLONE SOD SUCC 125 MG/2 ML VIAL IV SCH (05:08)
[2022-04-18] MEDS: CALCIUM ACETATE 667MG CAPSULE NG SCH ×3 (05:08→21:02)
[2022-04-18] MEDS: SULFAMETHOXAZOLE/TRIMETHOPRIM 200-40 MG/5ML 5ML ORAL SYR PO SCH ×3 (05:08→21:03)
[2022-04-18] MEDS: INSULIN LISPRO 100 UNITS/ML SUBCUT SCH ×7 (05:16→17:15)
[2022-04-18] MEDS: BLOOD SUGAR DIAGNOSTIC STRIP TEST SCH ×3 (05:20→17:14)
[2022-04-18 05:56] LABS: HEMATOCRIT. 26.3 % (36.0-48.0); HEMOGLOBIN. 8.4 g/dL (12.0-16.0); MEAN CORPUSCULAR HEMOGLOBIN 26.1 pg (28.0-32.0); MEAN CORPUSCULAR VOLUME 81.8 fL (81.0-99.0); MEAN PLATELET VOLUME 9.9 fl (7.4-10.4); PLATELET 228 x1000/uL (130-400); RED BLOOD CELL COUNT 3.22 mill/uL (4.2-5.4); RED CELL DISTRIBUTION WIDTH 14.3 % (11.6-14.6)
[2022-04-18 06:09] LABS: CHLORIDE 102 mEq/L (98-107)
[2022-04-18 06:49] LABS: PHOSPHORUS 8.5 mg/dL (2.5-4.9)
[2022-04-18 07:37] LABS: BG BASE EXCESS -0.4 mmol/L (-2.0-2.0); BG CARBOXYHEMOGLOBIN 0.3 % (0.5-1.5); BG DEOXYHEMOGLOBIN 9.8 % (0.0-5.0); BG FRACTION INSPIRED OXYGEN 50; BG HCO3 ACT 25.4 mmol/L (22.0-26.0); BG METHEMOGLOBIN 0.2 % (0.0-1.5); BG OXYGEN SATURATION 90.2 % (92.0-98.5); BG OXYHEMOGLOBIN 89.7 % (94.0-97.0); BG PCO2 47.1 mmHg (35.0-45.0); BG PO2 65.4 mmHg (75.0-100.0); BG SAMPLE SITE RIGHT RADIAL; BG TOTAL HEMOGLOBIN 9.7 g/dL (12.0-18.0); BG VENT MODE VENT - AC
[2022-04-18] MEDS: PANTOPRAZOLE SODIUM 40 MG/VIAL IV SCH (08:17)
[2022-04-18] MEDS: AMLODIPINE 5MG TABLET PO SCH ×2 (08:17→20:53)
[2022-04-18] MEDS: TACROLIMUS 1MG/PACKET GT SCH ×2 (08:17→17:14)
[2022-04-18] MEDS: CLONIDINE 0.1MG TABLET PO PRN (08:17)
[2022-04-18] MEDS: ATORVASTATIN CALCIUM 20MG TABLET PO SCH (08:18)
[2022-04-18] MEDS: LEVOTHYROXINE SODIUM 150MCG TABLET PO SCH (08:18)
[2022-04-18] MEDS: IPRATROPIUM/ALBUTEROL 0.5-3(2.5)MG/3ML NEB HHN SCH ×4 (08:40→18:00)
[2022-04-18 11:25] LABS: NUCLEATED RED BLOOD CELLS 2 /100 WBC; PLATELET ESTIMATE NORMAL
[2022-04-18] MEDS: MEROPENEM 1,000 MG in SODIUM CHLORIDE 0.9% 100 ML IV SCH (11:32)
[2022-04-18] MEDS: INSULIN GLARGINE 100 UNITS/ML SUBCUT SCH (11:35)
[2022-04-18] MEDS: PROPOFOL 10MG/ML 100ML 100 ML IV PRN (12:43)
[2022-04-18] MEDS: METHYLPREDNISOLONE SOD SUCC 40 MG/ML VIAL IV SCH ×2 (13:52→21:03)
[2022-04-18 15:50] LABS: HEPATITIS B SURFACE ANTIGEN NEGATIVE
[2022-04-18] MEDS: ENOXAPARIN 40MG/0.4ML SYR SUBCUT SCH (20:53)
[2022-04-19] VITALS (91 sets, daily range): BP systolic 85–153; BP diastolic 42–74
[2022-04-19] MEDS: MEROPENEM 1,000 MG in SODIUM CHLORIDE 0.9% 100 ML IV SCH ×3 (00:11→22:00)
[2022-04-19] MEDS: BLOOD SUGAR DIAGNOSTIC STRIP TEST SCH ×5 (00:11→23:39)
[2022-04-19] MEDS: INSULIN LISPRO 100 UNITS/ML SUBCUT SCH ×9 (00:14→17:10)
[2022-04-19 06:11] LABS: HEMATOCRIT. 25.7 % (36.0-48.0); HEMOGLOBIN. 8.1 g/dL (12.0-16.0); MEAN CORPUSCULAR VOLUME 82.8 fL (81.0-99.0); MEAN PLATELET VOLUME 9.9 fl (7.4-10.4); PLATELET 232 x1000/uL (130-400); RED CELL DISTRIBUTION WIDTH 14.3 % (11.6-14.6)
[2022-04-19 06:35] LABS: PHOSPHORUS 6.6 mg/dL (2.5-4.9)
[2022-04-19] MEDS: METHYLPREDNISOLONE SOD SUCC 40 MG/ML VIAL IV SCH ×3 (06:41→21:15)
[2022-04-19] MEDS: CALCIUM ACETATE 667MG CAPSULE NG SCH ×3 (06:42→21:15)
[2022-04-19] MEDS: LEVOTHYROXINE SODIUM 150MCG TABLET PO SCH (06:42)
[2022-04-19] MEDS: SULFAMETHOXAZOLE/TRIMETHOPRIM 200-40 MG/5ML 5ML ORAL SYR PO SCH ×3 (06:43→21:34)
[2022-04-19] MEDS: PROPOFOL 10MG/ML 100ML 100 ML IV PRN ×2 (07:01→15:17)
[2022-04-19] MEDS ORDERED: FENTANYL 2500MCG/250ML PMX 250 ML IV PRN (08:00)
[2022-04-19] MEDS: IPRATROPIUM/ALBUTEROL 0.5-3(2.5)MG/3ML NEB HHN SCH ×4 (08:31→21:48)
[2022-04-19 08:38] LABS: BG BASE EXCESS 3.9 mmol/L (-2.0-2.0); BG CARBOXYHEMOGLOBIN 0.3 % (0.5-1.5); BG DEOXYHEMOGLOBIN 5.4 % (0.0-5.0); BG FRACTION INSPIRED OXYGEN 50; BG HCO3 ACT 29.6 mmol/L (22.0-26.0); BG OXYGEN SATURATION 94.6 % (92.0-98.5); BG OXYHEMOGLOBIN 94.3 % (94.0-97.0); BG PCO2 50.4 mmHg (35.0-45.0); BG PH 7.386 (7.350-7.450); BG SAMPLE SITE RIGHT RADIAL; BG TOTAL HEMOGLOBIN 9.1 g/dL (12.0-18.0); BG VENT MODE VENT - AC
[2022-04-19] MEDS: PANTOPRAZOLE SODIUM 40 MG/VIAL IV SCH (08:50)
[2022-04-19] MEDS: ATORVASTATIN CALCIUM 20MG TABLET PO SCH (08:51)
[2022-04-19] MEDS: AMLODIPINE 5MG TABLET PO SCH ×2 (08:51→21:15)
[2022-04-19] MEDS: CLONIDINE 0.1MG TABLET PO PRN (08:51)
[2022-04-19] MEDS ORDERED: PROPOFOL 10MG/ML 100ML 100 ML IV PRN ×2 (09:45→20:15)
[2022-04-19] MEDS: INSULIN GLARGINE 100 UNITS/ML SUBCUT SCH (10:20)
[2022-04-19] MEDS: TACROLIMUS 1MG/PACKET GT SCH ×2 (10:21→17:25)
[2022-04-19 13:48] LABS: NUCLEATED RED BLOOD CELLS 5 /100 WBC; PLATELET ESTIMATE NORMAL
[2022-04-19] MEDS: ENOXAPARIN 40MG/0.4ML SYR SUBCUT SCH (21:15)
[2022-04-20] VITALS (97 sets, daily range): BP systolic 107–198; BP diastolic 44–131
[2022-04-20] MEDS: INSULIN LISPRO 100 UNITS/ML SUBCUT SCH ×8 (00:11→17:36)
[2022-04-20] MEDS: PROPOFOL 10MG/ML 100ML 100 ML IV PRN ×2 (00:13→05:45)
[2022-04-20] MEDS: IPRATROPIUM/ALBUTEROL 0.5-3(2.5)MG/3ML NEB HHN SCH ×4 (01:32→20:07)
[2022-04-20 05:21] LABS: HEMATOCRIT. 26.4 % (36.0-48.0); HEMOGLOBIN. 8.3 g/dL (12.0-16.0); MEAN CORPUSCULAR HEMOGLOBIN 26.2 pg (28.0-32.0); MEAN PLATELET VOLUME 9.6 fl (7.4-10.4); PLATELET 223 x1000/uL (130-400); RED BLOOD CELL COUNT 3.18 mill/uL (4.2-5.4); RED CELL DISTRIBUTION WIDTH 14.3 % (11.6-14.6)
[2022-04-20 05:29] LABS: CHLORIDE 100 mEq/L (98-107)
[2022-04-20] MEDS: BLOOD SUGAR DIAGNOSTIC STRIP TEST SCH ×3 (05:33→17:36)
[2022-04-20] MEDS: METHYLPREDNISOLONE SOD SUCC 40 MG/ML VIAL IV SCH ×3 (05:40→21:17)
[2022-04-20] MEDS: CALCIUM ACETATE 667MG CAPSULE NG SCH ×3 (05:40→21:18)
[2022-04-20] MEDS: LEVOTHYROXINE SODIUM 150MCG TABLET PO SCH (05:40)
[2022-04-20] MEDS: SULFAMETHOXAZOLE/TRIMETHOPRIM 200-40 MG/5ML 5ML ORAL SYR PO SCH ×3 (05:49→21:17)
[2022-04-20 07:55] LABS: BG BASE EXCESS 0.9 mmol/L (-2.0-2.0); BG CARBOXYHEMOGLOBIN 0.3 % (0.5-1.5); BG DEOXYHEMOGLOBIN 7.1 % (0.0-5.0); BG HCO3 ACT 27.4 mmol/L (22.0-26.0); BG METHEMOGLOBIN 0.3 % (0.0-1.5); BG OXYGEN SATURATION 92.9 % (92.0-98.5); BG OXYHEMOGLOBIN 92.3 % (94.0-97.0); BG PCO2 53.8 mmHg (35.0-45.0); BG PH 7.325 (7.350-7.450); BG PO2 73.1 mmHg (75.0-100.0); BG SAMPLE SITE RIGHT BRACHIAL; BG TOTAL HEMOGLOBIN 9.3 g/dL (12.0-18.0); BG VENT MODE VENT - AC
[2022-04-20] MEDS: TACROLIMUS 1MG/PACKET GT SCH ×2 (08:11→17:35)
[2022-04-20] MEDS: PANTOPRAZOLE SODIUM 40 MG/VIAL IV SCH (08:11)
[2022-04-20] MEDS: ATORVASTATIN CALCIUM 20MG TABLET PO SCH (08:11)
[2022-04-20] MEDS: AMLODIPINE 5MG TABLET PO SCH ×2 (09:00→21:17)
[2022-04-20] MEDS: INSULIN GLARGINE 100 UNITS/ML SUBCUT SCH (09:43)
[2022-04-20] MEDS: MEROPENEM 1,000 MG in SODIUM CHLORIDE 0.9% 100 ML IV SCH ×2 (11:37→23:29)
[2022-04-20] MEDS: CLONIDINE 0.1MG TABLET PO PRN (11:38)
[2022-04-20] MEDS: HYDRALAZINE 20MG/ML VIAL IV PRN (12:31)
[2022-04-20 13:11] LABS: BG BASE EXCESS -1.9 mmol/L (-2.0-2.0); BG CARBOXYHEMOGLOBIN 0.1 % (0.5-1.5); BG DEOXYHEMOGLOBIN 7.7 % (0.0-5.0); BG FRACTION INSPIRED OXYGEN 40; BG HCO3 ACT 23.1 mmol/L (22.0-26.0); BG METHEMOGLOBIN 0.3 % (0.0-1.5); BG OXYGEN SATURATION 92.3 % (92.0-98.5); BG OXYHEMOGLOBIN 91.9 % (94.0-97.0); BG PCO2 40.4 mmHg (35.0-45.0); BG PH 7.375 (7.350-7.450); BG SAMPLE SITE RIGHT RADIAL; BG VENT MODE VENT - SIMV
[2022-04-20 14:35] LABS: PLATELET ESTIMATE NORMAL
[2022-04-20] MEDS: ENOXAPARIN 40MG/0.4ML SYR SUBCUT SCH (21:18)
[2022-04-21] VITALS (70 sets, daily range): BP systolic 125–166; BP diastolic 49–79
[2022-04-21] MEDS: IPRATROPIUM/ALBUTEROL 0.5-3(2.5)MG/3ML NEB HHN SCH ×4 (02:00→20:14)
[2022-04-21 04:41] LABS: HEMATOCRIT. 29.1 % (36.0-48.0); MEAN CORPUSCULAR HEMOGLOBIN 25.7 pg (28.0-32.0); MEAN CORPUSCULAR VOLUME 83.3 fL (81.0-99.0); MEAN PLATELET VOLUME 9.4 fl (7.4-10.4); PLATELET 290 x1000/uL (130-400); RED BLOOD CELL COUNT 3.49 mill/uL (4.2-5.4); RED CELL DISTRIBUTION WIDTH 14.6 % (11.6-14.6)
[2022-04-21 04:54] LABS: PHOSPHORUS 5.7 mg/dL (2.5-4.9)
[2022-04-21] MEDS: CALCIUM ACETATE 667MG CAPSULE NG SCH ×3 (05:21→23:01)
[2022-04-21] MEDS: LEVOTHYROXINE SODIUM 150MCG TABLET PO SCH (05:21)
[2022-04-21] MEDS: METHYLPREDNISOLONE SOD SUCC 40 MG/ML VIAL IV SCH ×3 (05:21→22:59)
[2022-04-21] MEDS: INSULIN LISPRO 100 UNITS/ML SUBCUT SCH ×8 (05:23→18:53)
[2022-04-21] MEDS: BLOOD SUGAR DIAGNOSTIC STRIP TEST SCH ×4 (05:24→18:45)
[2022-04-21] MEDS ORDERED: SULFAMETHOXAZOLE/TRIMETHOPRIM 200-40 MG/5ML 5ML ORAL SYR PO SCH ×2 (09:15)
[2022-04-21] MEDS: ATORVASTATIN CALCIUM 20MG TABLET PO SCH (09:47)
[2022-04-21] MEDS: AMLODIPINE 5MG TABLET PO SCH ×2 (09:47→23:00)
[2022-04-21] MEDS: PANTOPRAZOLE SODIUM 40 MG/VIAL IV SCH (09:47)
[2022-04-21] MEDS: SULFAMETHOXAZOLE/TRIMETHOPRIM 200-40 MG/5ML 5ML ORAL SYR PO SCH ×2 (09:48→23:00)
[2022-04-21] MEDS: TACROLIMUS 1MG/PACKET GT SCH ×2 (09:48→16:13)
[2022-04-21] MEDS: INSULIN GLARGINE 100 UNITS/ML SUBCUT SCH (09:51)
[2022-04-21 09:55] LABS: NUCLEATED RED BLOOD CELLS 5 /100 WBC; PLATELET ESTIMATE NORMAL
[2022-04-21 11:32] LABS: BG BASE EXCESS -1.3 mmol/L (-2.0-2.0); BG CARBOXYHEMOGLOBIN 0.3 % (0.5-1.5); BG DEOXYHEMOGLOBIN 8.1 % (0.0-5.0); BG FRACTION INSPIRED OXYGEN 40; BG HCO3 ACT 23.5 mmol/L (22.0-26.0); BG METHEMOGLOBIN 0.1 % (0.0-1.5); BG OXYGEN SATURATION 91.9 % (92.0-98.5); BG OXYHEMOGLOBIN 91.5 % (94.0-97.0); BG PCO2 39.4 mmHg (35.0-45.0); BG PH 7.393 (7.350-7.450); BG PO2 65.7 mmHg (75.0-100.0); BG SAMPLE SITE RIGHT RADIAL; BG TOTAL HEMOGLOBIN 9.9 g/dL (12.0-18.0); BG VENT MODE VENT - CPAP
[2022-04-21] MEDS ORDERED: DEXT 5% IV SCH (21:00)
[2022-04-21] MEDS ORDERED: WATER IV SCH (21:00)
[2022-04-21] MEDS ORDERED: SULFAMETHOXAZOLE IV SCH (21:00)
[2022-04-21] MEDS ORDERED: TRIMETHOPRIM IV SCH (21:00)
[2022-04-21] MEDS: ENOXAPARIN 40MG/0.4ML SYR SUBCUT SCH (22:59)
[2022-04-21] MEDS: MEROPENEM 1,000 MG in SODIUM CHLORIDE 0.9% 100 ML IV SCH (23:36)
[2022-04-22] VITALS (38 sets, daily range): BP systolic 131–173; BP diastolic 56–78
[2022-04-22] MEDS: HYDRALAZINE 20MG/ML VIAL IV PRN (04:15)
[2022-04-22] MEDS: INSULIN LISPRO 100 UNITS/ML SUBCUT SCH ×8 (06:00→17:17)
[2022-04-22 06:12] LABS: HEMATOCRIT. 30.7 % (36.0-48.0); HEMOGLOBIN. 9.6 g/dL (12.0-16.0); MEAN CORPUSCULAR HEMOGLOBIN 25.8 pg (28.0-32.0); MEAN CORPUSCULAR VOLUME 82.8 fL (81.0-99.0); MEAN PLATELET VOLUME 9.6 fl (7.4-10.4); PLATELET 228 x1000/uL (130-400); RED CELL DISTRIBUTION WIDTH 14.5 % (11.6-14.6)
[2022-04-22] MEDS: CALCIUM ACETATE 667MG CAPSULE NG SCH ×3 (06:32→21:34)
[2022-04-22] MEDS: METHYLPREDNISOLONE SOD SUCC 40 MG/ML VIAL IV SCH ×3 (06:32→21:34)
[2022-04-22] MEDS: BLOOD SUGAR DIAGNOSTIC STRIP TEST SCH ×4 (06:34→17:17)
[2022-04-22] MEDS: IPRATROPIUM/ALBUTEROL 0.5-3(2.5)MG/3ML NEB HHN SCH ×4 (08:13→20:36)
[2022-04-22 08:25] LABS: NUCLEATED RED BLOOD CELLS 1 /100 WBC
[2022-04-22 08:27] LABS: PLATELET ESTIMATE NORMAL
[2022-04-22] MEDS: SULFAMETHOXAZOLE/TRIMETHOPRIM 200-40 MG/5ML 5ML ORAL SYR PO SCH ×2 (09:20→21:53)
[2022-04-22] MEDS: AMLODIPINE 5MG TABLET PO SCH ×2 (09:20→21:35)
[2022-04-22] MEDS: TACROLIMUS 1MG/PACKET GT SCH ×2 (09:20→18:14)
[2022-04-22] MEDS: PANTOPRAZOLE SODIUM 40 MG/VIAL IV SCH (09:20)
[2022-04-22] MEDS: ATORVASTATIN CALCIUM 20MG TABLET PO SCH (09:20)
[2022-04-22] MEDS: LEVOTHYROXINE SODIUM 150MCG TABLET PO SCH (09:21)
[2022-04-22] MEDS: INSULIN GLARGINE 100 UNITS/ML SUBCUT SCH (09:48)
[2022-04-22] MEDS: MEROPENEM 1,000 MG in SODIUM CHLORIDE 0.9% 100 ML IV SCH (21:34)
[2022-04-22] MEDS: ENOXAPARIN 40MG/0.4ML SYR SUBCUT SCH (21:34)
[2022-04-23] VITALS (20 sets, daily range): BP systolic 121–164; BP diastolic 54–80
[2022-04-23] MEDS: BLOOD SUGAR DIAGNOSTIC STRIP TEST SCH ×4 (00:09→17:32)
[2022-04-23] MEDS: IPRATROPIUM/ALBUTEROL 0.5-3(2.5)MG/3ML NEB HHN SCH ×4 (01:52→20:14)
[2022-04-23 06:20] LABS: HEMATOCRIT. 29.6 % (36.0-48.0); HEMOGLOBIN. 9.1 g/dL (12.0-16.0); MEAN CORPUSCULAR VOLUME 84.1 fL (81.0-99.0); MEAN PLATELET VOLUME 9.8 fl (7.4-10.4); PLATELET 194 x1000/uL (130-400); RED BLOOD CELL COUNT 3.51 mill/uL (4.2-5.4)
[2022-04-23] MEDS: CALCIUM ACETATE 667MG CAPSULE NG SCH (06:34)
[2022-04-23] MEDS: METHYLPREDNISOLONE SOD SUCC 40 MG/ML VIAL IV SCH ×2 (06:34→17:39)
[2022-04-23] MEDS: INSULIN LISPRO 100 UNITS/ML SUBCUT SCH ×8 (06:35→17:38)
[2022-04-23 08:19] LABS: PHOSPHORUS 4.4 mg/dL (2.5-4.9)
[2022-04-23] MEDS ORDERED: FUROSEMIDE 40MG TABLET PO SCH (09:00)
[2022-04-23] MEDS ORDERED: ASPIRIN 81MG EC TABLET PO SCH ×2 (09:00)
[2022-04-23] MEDS ORDERED: CYANOCOBALAMIN 1000MCG TABLET GT SCH (09:00)
[2022-04-23] MEDS: PANTOPRAZOLE SODIUM 40 MG/VIAL IV SCH (09:06)
[2022-04-23] MEDS: TACROLIMUS 1MG/PACKET GT SCH ×2 (09:07→17:38)
[2022-04-23] MEDS: FUROSEMIDE 40MG TABLET PO SCH (09:07)
[2022-04-23] MEDS: LEVOTHYROXINE SODIUM 150MCG TABLET PO SCH (09:07)
[2022-04-23] MEDS: AMLODIPINE 5MG TABLET PO SCH ×2 (09:08→22:14)
[2022-04-23] MEDS: ATORVASTATIN CALCIUM 20MG TABLET PO SCH (09:08)
[2022-04-23] MEDS: SULFAMETHOXAZOLE/TRIMETHOPRIM 200-40 MG/5ML 5ML ORAL SYR PO SCH ×2 (09:09→22:15)
[2022-04-23] MEDS: INSULIN GLARGINE 100 UNITS/ML SUBCUT SCH (10:32)
[2022-04-23] MEDS: CYANOCOBALAMIN 1000MCG TABLET GT SCH (10:32)
[2022-04-23] MEDS: CALCIUM ACETATE 667 MG/5 ML SOLUTION NG SCH ×2 (14:00→22:16)
[2022-04-23 21:10] LABS: BG BASE EXCESS 2.2 mmol/L (-2.0-2.0); BG CARBOXYHEMOGLOBIN 0.1 % (0.5-1.5); BG DEOXYHEMOGLOBIN 13.8 % (0.0-5.0); BG FRACTION INSPIRED OXYGEN 40; BG HCO3 ACT 27.5 mmol/L (22.0-26.0); BG METHEMOGLOBIN 0.1 % (0.0-1.5); BG OXYGEN SATURATION 86.2 % (92.0-98.5); BG PCO2 46.2 mmHg (35.0-45.0); BG PH 7.393 (7.350-7.450); BG PO2 54.4 mmHg (75.0-100.0); BG SAMPLE SITE CPB CIRCUIT; BG TOTAL HEMOGLOBIN 10.5 g/dL (12.0-18.0); BG VENT MODE MASK - BIPAP
[2022-04-23] MEDS: MEROPENEM 1,000 MG in SODIUM CHLORIDE 0.9% 100 ML IV SCH (22:07)
[2022-04-23] MEDS: ENOXAPARIN 40MG/0.4ML SYR SUBCUT SCH (22:16)
[2022-04-24] VITALS (12 sets, daily range): BP systolic 118–156; BP diastolic 45–73
[2022-04-24] MEDS: BLOOD SUGAR DIAGNOSTIC STRIP TEST SCH ×4 (00:50→17:44)
[2022-04-24] MEDS: INSULIN LISPRO 100 UNITS/ML SUBCUT SCH ×8 (01:09→18:00)
[2022-04-24] MEDS: IPRATROPIUM/ALBUTEROL 0.5-3(2.5)MG/3ML NEB HHN SCH ×4 (01:24→20:17)
[2022-04-24] MEDS: METHYLPREDNISOLONE SOD SUCC 40 MG/ML VIAL IV SCH ×2 (06:23→18:27)
[2022-04-24] MEDS: CALCIUM ACETATE 667 MG/5 ML SOLUTION NG SCH ×3 (06:24→21:13)
[2022-04-24 08:07] LABS: NUCLEATED RED BLOOD CELLS 1 /100 WBC
[2022-04-24 08:08] LABS: PLATELET ESTIMATE NORMAL
[2022-04-24] MEDS: LEVOTHYROXINE SODIUM 150MCG TABLET PO SCH (08:52)
[2022-04-24] MEDS: ATORVASTATIN CALCIUM 20MG TABLET PO SCH (08:53)
[2022-04-24] MEDS: FUROSEMIDE 40MG TABLET PO SCH (08:53)
[2022-04-24] MEDS: ASPIRIN 81MG TABLET NG SCH (08:53)
[2022-04-24] MEDS: TACROLIMUS 1MG/PACKET GT SCH ×2 (08:53→18:27)
[2022-04-24] MEDS: AMLODIPINE 5MG TABLET PO SCH ×2 (08:54→21:11)
[2022-04-24] MEDS: INSULIN GLARGINE 100 UNITS/ML SUBCUT SCH (08:55)
[2022-04-24] MEDS: SULFAMETHOXAZOLE/TRIMETHOPRIM 200-40 MG/5ML 5ML ORAL SYR PO SCH ×2 (08:57→21:11)
[2022-04-24] MEDS: PANTOPRAZOLE SODIUM 40 MG/VIAL IV SCH (08:58)
[2022-04-24] MEDS: CYANOCOBALAMIN 1000MCG TABLET GT SCH (08:58)
[2022-04-24 11:43] LABS: BG BASE EXCESS 0.2 mmol/L (-2.0-2.0); BG CARBOXYHEMOGLOBIN 0.3 % (0.5-1.5); BG FRACTION INSPIRED OXYGEN 100; BG HCO3 ACT 25.8 mmol/L (22.0-26.0); BG METHEMOGLOBIN 0.3 % (0.0-1.5); BG OXYHEMOGLOBIN 96.4 % (94.0-97.0); BG PCO2 46.6 mmHg (35.0-45.0); BG PH 7.361 (7.350-7.450); BG PO2 101.2 mmHg (75.0-100.0); BG SAMPLE SITE RIGHT RADIAL; BG TOTAL HEMOGLOBIN 8.9 g/dL (12.0-18.0); BG TOTAL RESPIRATORY RATE 30 b/min; BG VENT MODE MASK - BIPAP
[2022-04-24 16:30] LABS: BASOPHILS % 0.3 % (0.0-2.0); EOSINOPHILS % 0.6 % (0.0-5.0); HEMATOCRIT. 26.9 % (36.0-48.0); HEMOGLOBIN. 8.3 g/dL (12.0-16.0); LYMPHOCYTES % 7.1 % (20.0-50.0); MEAN CORPUSCULAR HEMOGLOBIN 26.1 pg (28.0-32.0); MEAN CORPUSCULAR VOLUME 84.6 fL (81.0-99.0); MEAN PLATELET VOLUME 9.8 fl (7.4-10.4); MONOCYTES % 8.3 % (2.0-8.0); NEUTROPHILS % 83.7 % (40.0-76.0); PLATELET 151 x1000/uL (130-400); RED BLOOD CELL COUNT 3.17 mill/uL (4.2-5.4); RED CELL DISTRIBUTION WIDTH 14.6 % (11.6-14.6)
[2022-04-24] MEDS: MEROPENEM 1,000 MG in SODIUM CHLORIDE 0.9% 100 ML IV SCH (21:10)
[2022-04-24] MEDS: ENOXAPARIN 40MG/0.4ML SYR SUBCUT SCH (21:13)
[2022-04-25] VITALS (12 sets, daily range): BP systolic 112–145; BP diastolic 51–72
[2022-04-25] MEDS: BLOOD SUGAR DIAGNOSTIC STRIP TEST SCH ×5 (00:32→23:45)
[2022-04-25] MEDS: INSULIN LISPRO 100 UNITS/ML SUBCUT SCH ×10 (00:40→23:45)
[2022-04-25] MEDS: IPRATROPIUM/ALBUTEROL 0.5-3(2.5)MG/3ML NEB HHN SCH ×4 (01:48→20:25)
[2022-04-25] MEDS: METHYLPREDNISOLONE SOD SUCC 40 MG/ML VIAL IV SCH ×2 (05:17→18:00)
[2022-04-25] MEDS: CALCIUM ACETATE 667 MG/5 ML SOLUTION NG SCH ×3 (05:17→21:22)
[2022-04-25 07:06] LABS: BASOPHILS % 0.2 % (0.0-2.0); EOSINOPHILS % 0.9 % (0.0-5.0); HEMATOCRIT. 27.4 % (36.0-48.0); HEMOGLOBIN. 8.6 g/dL (12.0-16.0); LYMPHOCYTES % 11.8 % (20.0-50.0); MEAN CORPUSCULAR HEMOGLOBIN 26.8 pg (28.0-32.0); MONOCYTES % 9.6 % (2.0-8.0); NEUTROPHILS % 77.5 % (40.0-76.0); PLATELET 147 x1000/uL (130-400); RED BLOOD CELL COUNT 3.22 mill/uL (4.2-5.4); RED CELL DISTRIBUTION WIDTH 14.9 % (11.6-14.6)
[2022-04-25 08:07] LABS: CHLORIDE 112 mEq/L (98-107)
[2022-04-25] MEDS ORDERED: LIDOCAINE HCL 1% 10 MG/ML 10ML VIAL ONE (08:24)
[2022-04-25] MEDS: PANTOPRAZOLE SODIUM 40 MG/VIAL IV SCH (09:46)
[2022-04-25] MEDS: AMLODIPINE 5MG TABLET PO SCH ×2 (09:47→21:09)
[2022-04-25] MEDS: TACROLIMUS 1MG/PACKET GT SCH ×2 (09:47→18:00)
[2022-04-25] MEDS: FUROSEMIDE 40MG TABLET PO SCH (09:47)
[2022-04-25] MEDS: ATORVASTATIN CALCIUM 20MG TABLET PO SCH (09:47)
[2022-04-25] MEDS: ASPIRIN 81MG TABLET NG SCH (09:47)
[2022-04-25] MEDS: LEVOTHYROXINE SODIUM 150MCG TABLET PO SCH (09:47)
[2022-04-25] MEDS: SULFAMETHOXAZOLE/TRIMETHOPRIM 200-40 MG/5ML 5ML ORAL SYR PO SCH ×2 (09:48→21:21)
[2022-04-25] MEDS: CYANOCOBALAMIN 1000MCG TABLET GT SCH (09:50)
[2022-04-25] MEDS: INSULIN GLARGINE 100 UNITS/ML SUBCUT SCH (09:55)
[2022-04-25] MEDS: PSYLLIUM SEED PACKET PO SCH ×2 (15:00→17:00)
[2022-04-25] MEDS: MEROPENEM 1,000 MG in SODIUM CHLORIDE 0.9% 100 ML IV SCH (21:08)
[2022-04-25] MEDS: ENOXAPARIN 40MG/0.4ML SYR SUBCUT SCH (21:08)
[2022-04-26] VITALS (12 sets, daily range): BP systolic 108–156; BP diastolic 61–73
[2022-04-26] MEDS: IPRATROPIUM/ALBUTEROL 0.5-3(2.5)MG/3ML NEB HHN SCH ×4 (01:08→20:42)
[2022-04-26] MEDS: METHYLPREDNISOLONE SOD SUCC 40 MG/ML VIAL IV SCH ×2 (05:15→18:03)
[2022-04-26] MEDS: CALCIUM ACETATE 667 MG/5 ML SOLUTION NG SCH ×3 (05:15→21:41)
[2022-04-26] MEDS: INSULIN LISPRO 100 UNITS/ML SUBCUT SCH ×8 (05:59→23:28)
[2022-04-26] MEDS: BLOOD SUGAR DIAGNOSTIC STRIP TEST SCH ×4 (06:00→23:29)
[2022-04-26 06:31] LABS: BASOPHILS % 0.4 % (0.0-2.0); EOSINOPHILS % 0.4 % (0.0-5.0); HEMOGLOBIN. 8.2 g/dL (12.0-16.0); MEAN CORPUSCULAR HEMOGLOBIN 26.8 pg (28.0-32.0); MEAN CORPUSCULAR VOLUME 85.2 fL (81.0-99.0); MEAN PLATELET VOLUME 10.1 fl (7.4-10.4); MONOCYTES % 7.4 % (2.0-8.0); NEUTROPHILS % 82.8 % (40.0-76.0); PLATELET 136 x1000/uL (130-400); RED BLOOD CELL COUNT 3.06 mill/uL (4.2-5.4); RED CELL DISTRIBUTION WIDTH 14.8 % (11.6-14.6)
[2022-04-26] MEDS ORDERED: INSULIN GLARGINE 100 UNITS/ML SUBCUT SCH (10:00)
[2022-04-26] MEDS: LEVOTHYROXINE SODIUM 150MCG TABLET PO SCH (10:22)
[2022-04-26] MEDS: CYANOCOBALAMIN 1000MCG TABLET GT SCH (10:22)
[2022-04-26] MEDS: ATORVASTATIN CALCIUM 20MG TABLET PO SCH (10:22)
[2022-04-26] MEDS: TACROLIMUS 1MG/PACKET GT SCH ×2 (10:22→18:03)
[2022-04-26] MEDS: ASPIRIN 81MG TABLET NG SCH (10:22)
[2022-04-26] MEDS: FUROSEMIDE 40MG TABLET PO SCH (10:23)
[2022-04-26] MEDS: PSYLLIUM SEED PACKET PO SCH ×2 (10:23→18:03)
[2022-04-26] MEDS: SULFAMETHOXAZOLE/TRIMETHOPRIM 200-40 MG/5ML 5ML ORAL SYR PO SCH ×2 (10:23→21:42)
[2022-04-26] MEDS: AMLODIPINE 5MG TABLET PO SCH ×2 (10:24→21:42)
[2022-04-26] MEDS: PANTOPRAZOLE SODIUM 40 MG/VIAL IV SCH (10:48)
[2022-04-26] MEDS: MEROPENEM 1,000 MG in SODIUM CHLORIDE 0.9% 100 ML IV SCH (21:43)
[2022-04-27] VITALS (10 sets, daily range): BP systolic 121–163; BP diastolic 57–79
[2022-04-27] MEDS: METHYLPREDNISOLONE SOD SUCC 40 MG/ML VIAL IV SCH ×3 (01:05→18:42)
[2022-04-27] MEDS: ENOXAPARIN 40MG/0.4ML SYR SUBCUT SCH ×2 (01:05→21:20)
[2022-04-27] MEDS: IPRATROPIUM/ALBUTEROL 0.5-3(2.5)MG/3ML NEB HHN SCH ×4 (02:21→21:48)
[2022-04-27 06:20] LABS: HEMATOCRIT. 27.5 % (36.0-48.0); HEMOGLOBIN. 8.6 g/dL (12.0-16.0); MEAN CORPUSCULAR HEMOGLOBIN 26.6 pg (28.0-32.0); MEAN CORPUSCULAR VOLUME 85.1 fL (81.0-99.0); MEAN PLATELET VOLUME 10.2 fl (7.4-10.4); PLATELET 141 x1000/uL (130-400); RED BLOOD CELL COUNT 3.23 mill/uL (4.2-5.4); RED CELL DISTRIBUTION WIDTH 14.7 % (11.6-14.6)
[2022-04-27] MEDS: INSULIN LISPRO 100 UNITS/ML SUBCUT SCH ×11 (06:29→23:58)
[2022-04-27] MEDS: CALCIUM ACETATE 667 MG/5 ML SOLUTION NG SCH ×3 (06:29→21:20)
[2022-04-27] MEDS: BLOOD SUGAR DIAGNOSTIC STRIP TEST SCH ×4 (06:30→23:58)
[2022-04-27 06:38] LABS: CHLORIDE 107 mEq/L (98-107)
[2022-04-27 06:47] LABS: PHOSPHORUS 2.7 mg/dL (2.5-4.9)
[2022-04-27] MEDS: ASPIRIN 81MG TABLET NG SCH (08:46)
[2022-04-27] MEDS: FUROSEMIDE 40MG TABLET PO SCH (08:47)
[2022-04-27] MEDS: SULFAMETHOXAZOLE/TRIMETHOPRIM 200-40 MG/5ML 5ML ORAL SYR PO SCH ×2 (08:47→21:20)
[2022-04-27] MEDS: TACROLIMUS 1MG/PACKET GT SCH ×2 (08:47→18:42)
[2022-04-27] MEDS: PANTOPRAZOLE SODIUM 40 MG/VIAL IV SCH (08:47)
[2022-04-27] MEDS: LEVOTHYROXINE SODIUM 150MCG TABLET PO SCH (08:47)
[2022-04-27] MEDS: AMLODIPINE 5MG TABLET PO SCH ×2 (08:47→21:21)
[2022-04-27] MEDS: PSYLLIUM SEED PACKET PO SCH ×2 (08:47→17:00)
[2022-04-27] MEDS: CYANOCOBALAMIN 1000MCG TABLET GT SCH (08:47)
[2022-04-27] MEDS: ATORVASTATIN CALCIUM 20MG TABLET PO SCH (08:48)
[2022-04-27] MEDS ORDERED: INSULIN GLARGINE 100 UNITS/ML SUBCUT SCH (10:00)
[2022-04-27 13:14] LABS: PLATELET ESTIMATE NORMAL
[2022-04-27 13:41] LABS: BG BASE EXCESS 0.3 mmol/L (-2.0-2.0); BG CARBOXYHEMOGLOBIN 0.2 % (0.5-1.5); BG DEOXYHEMOGLOBIN 1.7 % (0.0-5.0); BG FRACTION INSPIRED OXYGEN 100; BG HCO3 ACT 25.4 mmol/L (22.0-26.0); BG METHEMOGLOBIN 0.1 % (0.0-1.5); BG OXYGEN SATURATION 98.3 % (92.0-98.5); BG PCO2 43.4 mmHg (35.0-45.0); BG PH 7.386 (7.350-7.450); BG PO2 123.5 mmHg (75.0-100.0); BG SAMPLE SITE RIGHT BRACHIAL; BG TOTAL HEMOGLOBIN 8.8 g/dL (12.0-18.0); BG VENT MODE MASK - BIPAP
[2022-04-28] VITALS (11 sets, daily range): BP systolic 104–168; BP diastolic 52–95
[2022-04-28] MEDS: IPRATROPIUM/ALBUTEROL 0.5-3(2.5)MG/3ML NEB HHN SCH ×4 (01:17→20:34)
[2022-04-28] MEDS: METHYLPREDNISOLONE SOD SUCC 40 MG/ML VIAL IV SCH ×3 (02:21→18:13)
[2022-04-28] MEDS: CALCIUM ACETATE 667 MG/5 ML SOLUTION NG SCH ×3 (05:23→21:50)
[2022-04-28 05:38] LABS: HEMATOCRIT. 28.5 % (36.0-48.0); HEMOGLOBIN. 8.8 g/dL (12.0-16.0); MEAN CORPUSCULAR HEMOGLOBIN 26.5 pg (28.0-32.0); MEAN CORPUSCULAR VOLUME 85.8 fL (81.0-99.0); MEAN PLATELET VOLUME 10.3 fl (7.4-10.4); PLATELET 139 x1000/uL (130-400); RED BLOOD CELL COUNT 3.32 mill/uL (4.2-5.4); RED CELL DISTRIBUTION WIDTH 14.6 % (11.6-14.6)
[2022-04-28] MEDS: BLOOD SUGAR DIAGNOSTIC STRIP TEST SCH ×3 (05:39→17:47)
[2022-04-28] MEDS: INSULIN LISPRO 100 UNITS/ML SUBCUT SCH ×6 (05:39→18:13)
[2022-04-28 06:01] LABS: PHOSPHORUS 2.7 mg/dL (2.5-4.9)
[2022-04-28 06:47] LABS: PLATELET ESTIMATE NORMAL
[2022-04-28] MEDS: PSYLLIUM SEED PACKET PO SCH ×2 (09:00→17:00)
[2022-04-28] MEDS: ASPIRIN 81MG TABLET NG SCH (09:10)
[2022-04-28] MEDS: AMLODIPINE 5MG TABLET PO SCH ×2 (09:10→21:49)
[2022-04-28] MEDS: ATORVASTATIN CALCIUM 20MG TABLET PO SCH (09:10)
[2022-04-28] MEDS: FUROSEMIDE 40MG TABLET PO SCH (09:10)
[2022-04-28] MEDS: TACROLIMUS 1MG/PACKET GT SCH ×2 (09:11→17:00)
[2022-04-28] MEDS: LEVOTHYROXINE SODIUM 150MCG TABLET PO SCH (09:11)
[2022-04-28] MEDS: PANTOPRAZOLE SODIUM 40 MG/VIAL IV SCH (09:11)
[2022-04-28] MEDS: SULFAMETHOXAZOLE/TRIMETHOPRIM 200-40 MG/5ML 5ML ORAL SYR PO SCH ×2 (09:14→21:50)
[2022-04-28] MEDS: CYANOCOBALAMIN 1000MCG TABLET GT SCH (09:18)
[2022-04-28] MEDS: INSULIN GLARGINE 100 UNITS/ML SUBCUT SCH ×2 (10:00→13:43)
[2022-04-28] MEDS: ENOXAPARIN 40MG/0.4ML SYR SUBCUT SCH (21:50)
[2022-04-29] VITALS (12 sets, daily range): BP systolic 116–168; BP diastolic 53–91
[2022-04-29] MEDS: BLOOD SUGAR DIAGNOSTIC STRIP TEST SCH ×4 (00:24→17:34)
[2022-04-29] MEDS: INSULIN LISPRO 100 UNITS/ML SUBCUT SCH ×8 (00:38→17:47)
[2022-04-29] MEDS: IPRATROPIUM/ALBUTEROL 0.5-3(2.5)MG/3ML NEB HHN SCH ×4 (01:35→19:50)
[2022-04-29] MEDS: METHYLPREDNISOLONE SOD SUCC 40 MG/ML VIAL IV SCH ×3 (02:30→17:46)
[2022-04-29] MEDS: CALCIUM ACETATE 667 MG/5 ML SOLUTION NG SCH (05:15)
[2022-04-29 07:21] LABS: HEMATOCRIT. 27.3 % (36.0-48.0); HEMOGLOBIN. 8.7 g/dL (12.0-16.0); MEAN CORPUSCULAR HEMOGLOBIN 26.5 pg (28.0-32.0); MEAN CORPUSCULAR VOLUME 83.6 fL (81.0-99.0); MEAN PLATELET VOLUME 10.5 fl (7.4-10.4); PLATELET 145 x1000/uL (130-400); RED BLOOD CELL COUNT 3.27 mill/uL (4.2-5.4); RED CELL DISTRIBUTION WIDTH 15.2 % (11.6-14.6)
[2022-04-29 07:47] LABS: BG BASE EXCESS -0.9 mmol/L (-2.0-2.0); BG CARBOXYHEMOGLOBIN 0.3 % (0.5-1.5); BG METHEMOGLOBIN 0.1 % (0.0-1.5); BG OXYGEN SATURATION 77.9 % (92.0-98.5); BG OXYHEMOGLOBIN 77.6 % (94.0-97.0); BG PH 7.435 (7.350-7.450); BG PO2 40.6 mmHg (75.0-100.0); BG SAMPLE SITE RIGHT RADIAL; BG TOTAL HEMOGLOBIN 9.8 g/dL (12.0-18.0); BG VENT MODE VAPOTHERM
[2022-04-29 07:55] LABS: PHOSPHORUS 2.3 mg/dL (2.5-4.9)
[2022-04-29] MEDS: PSYLLIUM SEED PACKET PO SCH ×2 (08:11→17:47)
[2022-04-29] MEDS: ASPIRIN 81MG TABLET NG SCH (08:52)
[2022-04-29] MEDS: ATORVASTATIN CALCIUM 20MG TABLET PO SCH (08:52)
[2022-04-29] MEDS: FUROSEMIDE 40MG TABLET PO SCH (08:52)
[2022-04-29] MEDS: LEVOTHYROXINE SODIUM 150MCG TABLET PO SCH (08:52)
[2022-04-29] MEDS: PANTOPRAZOLE SODIUM 40 MG/VIAL IV SCH (08:53)
[2022-04-29] MEDS: TACROLIMUS 1MG/PACKET GT SCH ×2 (08:53→17:46)
[2022-04-29] MEDS: SULFAMETHOXAZOLE/TRIMETHOPRIM 200-40 MG/5ML 5ML ORAL SYR PO SCH ×2 (08:55→21:37)
[2022-04-29] MEDS: CYANOCOBALAMIN 1000MCG TABLET GT SCH (08:57)
[2022-04-29] MEDS: AMLODIPINE 5MG TABLET PO SCH ×2 (08:57→21:38)
[2022-04-29 10:16] LABS: BG BASE EXCESS -2.5 mmol/L (-2.0-2.0); BG CARBOXYHEMOGLOBIN 0.2 % (0.5-1.5); BG DEOXYHEMOGLOBIN 13.1 % (0.0-5.0); BG HCO3 ACT 21.7 mmol/L (22.0-26.0); BG OXYGEN SATURATION 86.9 % (92.0-98.5); BG OXYHEMOGLOBIN 86.7 % (94.0-97.0); BG PCO2 35.6 mmHg (35.0-45.0); BG PH 7.403 (7.350-7.450); BG PO2 52.2 mmHg (75.0-100.0); BG SAMPLE SITE RIGHT RADIAL; BG TOTAL HEMOGLOBIN 11.2 g/dL (12.0-18.0); BG VENT MODE VAPOTHERM
[2022-04-29 13:41] LABS: NUCLEATED RED BLOOD CELLS 1 /100 WBC
[2022-04-29 13:42] LABS: PLATELET ESTIMATE NORMAL
[2022-04-29] MEDS: ENOXAPARIN 40MG/0.4ML SYR SUBCUT SCH (21:39)
[2022-04-30] VITALS (12 sets, daily range): BP systolic 102–162; BP diastolic 49–102
[2022-04-30] MEDS: BLOOD SUGAR DIAGNOSTIC STRIP TEST SCH ×4 (00:31→18:00)
[2022-04-30] MEDS: INSULIN LISPRO 100 UNITS/ML SUBCUT SCH ×8 (00:47→18:31)
[2022-04-30] MEDS: METHYLPREDNISOLONE SOD SUCC 40 MG/ML VIAL IV SCH ×3 (01:35→18:22)
[2022-04-30] MEDS: IPRATROPIUM/ALBUTEROL 0.5-3(2.5)MG/3ML NEB HHN SCH ×4 (01:47→20:38)
[2022-04-30 06:25] LABS: HEMATOCRIT. 26.8 % (36.0-48.0); HEMOGLOBIN. 8.7 g/dL (12.0-16.0); MEAN CORPUSCULAR HEMOGLOBIN 27.2 pg (28.0-32.0); MEAN CORPUSCULAR VOLUME 83.2 fL (81.0-99.0); MEAN PLATELET VOLUME 10.5 fl (7.4-10.4); PLATELET 143 x1000/uL (130-400); RED BLOOD CELL COUNT 3.22 mill/uL (4.2-5.4); RED CELL DISTRIBUTION WIDTH 15.7 % (11.6-14.6)
[2022-04-30 06:42] LABS: PHOSPHORUS 2.7 mg/dL (2.5-4.9)
[2022-04-30] MEDS: LEVOTHYROXINE SODIUM 150MCG TABLET PO SCH (08:46)
[2022-04-30] MEDS: CYANOCOBALAMIN 1000MCG TABLET GT SCH (08:46)
[2022-04-30] MEDS: TACROLIMUS 1MG/PACKET GT SCH ×2 (08:46→18:21)
[2022-04-30] MEDS: FUROSEMIDE 40MG TABLET PO SCH (08:46)
[2022-04-30] MEDS: ASPIRIN 81MG TABLET NG SCH (08:46)
[2022-04-30] MEDS: ATORVASTATIN CALCIUM 20MG TABLET PO SCH (08:47)
[2022-04-30] MEDS: AMLODIPINE 5MG TABLET PO SCH ×2 (08:48→21:20)
[2022-04-30] MEDS: PANTOPRAZOLE SODIUM 40 MG/VIAL IV SCH (08:52)
[2022-04-30] MEDS: PSYLLIUM SEED PACKET PO SCH ×2 (08:55→18:22)
[2022-04-30] MEDS: SULFAMETHOXAZOLE/TRIMETHOPRIM 200-40 MG/5ML 5ML ORAL SYR PO SCH ×2 (08:55→21:18)
[2022-04-30 09:52] LABS: BG BASE EXCESS -2.1 mmol/L (-2.0-2.0); BG CARBOXYHEMOGLOBIN 0.3 % (0.5-1.5); BG DEOXYHEMOGLOBIN 13.8 % (0.0-5.0); BG FRACTION INSPIRED OXYGEN 100; BG HCO3 ACT 21.8 mmol/L (22.0-26.0); BG METHEMOGLOBIN 1.4 % (0.0-1.5); BG OXYHEMOGLOBIN 84.5 % (94.0-97.0); BG PH 7.425 (7.350-7.450); BG PO2 49.6 mmHg (75.0-100.0); BG SAMPLE SITE RIGHT RADIAL; BG TOTAL HEMOGLOBIN 10.6 g/dL (12.0-18.0); BG VENT MODE HIGH FLOW
[2022-04-30 10:36] LABS: PLATELET ESTIMATE NORMAL
[2022-04-30] MEDS: INSULIN GLARGINE 100 UNITS/ML SUBCUT SCH (11:53)
[2022-04-30] MEDS: ENOXAPARIN 40MG/0.4ML SYR SUBCUT SCH (21:19)
[2022-05-01] VITALS (12 sets, daily range): BP systolic 116–161; BP diastolic 65–103
[2022-05-01] MEDS: IPRATROPIUM/ALBUTEROL 0.5-3(2.5)MG/3ML NEB HHN SCH ×4 (02:05→21:39)
[2022-05-01] MEDS: SULFAMETHOXAZOLE/TRIMETHOPRIM 200-40 MG/5ML 5ML ORAL SYR PO SCH ×3 (05:51→17:34)
[2022-05-01] MEDS: METHYLPREDNISOLONE SOD SUCC 40 MG/ML VIAL IV SCH ×3 (05:51→17:32)
[2022-05-01] MEDS: INSULIN LISPRO 100 UNITS/ML SUBCUT SCH ×8 (06:04→18:27)
[2022-05-01] MEDS: BLOOD SUGAR DIAGNOSTIC STRIP TEST SCH ×4 (06:05→18:06)
[2022-05-01 06:38] LABS: PHOSPHORUS 3.6 mg/dL (2.5-4.9)
[2022-05-01 08:38] LABS: BG BASE EXCESS -1.7 mmol/L (-2.0-2.0); BG CARBOXYHEMOGLOBIN 0.3 % (0.5-1.5); BG FRACTION INSPIRED OXYGEN 70; BG HCO3 ACT 22.2 mmol/L (22.0-26.0); BG METHEMOGLOBIN 0.4 % (0.0-1.5); BG OXYHEMOGLOBIN 92.3 % (94.0-97.0); BG PCO2 34.4 mmHg (35.0-45.0); BG PH 7.428 (7.350-7.450); BG PO2 65.6 mmHg (75.0-100.0); BG SAMPLE SITE LEFT RADIAL; BG TOTAL HEMOGLOBIN 9.6 g/dL (12.0-18.0); BG TOTAL RESPIRATORY RATE 24 b/min; BG VENT MODE MASK - BIPAP
[2022-05-01] MEDS: AMLODIPINE 5MG TABLET PO SCH ×2 (09:00→20:31)
[2022-05-01] MEDS: TACROLIMUS 1MG/PACKET GT SCH ×2 (09:36→17:33)
[2022-05-01] MEDS: CYANOCOBALAMIN 1000MCG TABLET GT SCH (09:36)
[2022-05-01] MEDS: PSYLLIUM SEED PACKET PO SCH ×2 (09:36→17:33)
[2022-05-01] MEDS: ASPIRIN 81MG TABLET NG SCH (09:37)
[2022-05-01] MEDS: FUROSEMIDE 40MG TABLET PO SCH (09:37)
[2022-05-01] MEDS: ATORVASTATIN CALCIUM 20MG TABLET PO SCH (09:37)
[2022-05-01] MEDS: PANTOPRAZOLE SODIUM 40 MG/VIAL IV SCH (09:52)
[2022-05-01 12:15] LABS: CLARITY URINE TURBID (CLEAR); COLOR URINE YELLOW (YELLOW); KETONES URINE NEGATIVE (NEGATIVE); LEUKOCYTE ESTERASE URINE TRACE (NEGATIVE); NITRITE URINE NEGATIVE (NEGATIVE); OCCULT BLOOD URINE 2+ (NEGATIVE); PH URINE 5.5 (4.5-8.0); PROTEIN URINE 2+ (NEGATIVE); SPECIFIC GRAVITY URINE 1.011 (1.005-1.030); UROBILINOGEN URINE 0.2 E.U./dL (0.2-1.0)
[2022-05-01] MEDS: INSULIN GLARGINE 100 UNITS/ML SUBCUT SCH (12:15)
[2022-05-01] MEDS: LEVOTHYROXINE SODIUM 150MCG TABLET PO SCH (12:24)
[2022-05-01] MEDS: ENOXAPARIN 40MG/0.4ML SYR SUBCUT SCH (20:32)
[2022-05-02] VITALS (12 sets, daily range): BP systolic 133–162; BP diastolic 61–87
[2022-05-02] MEDS: BLOOD SUGAR DIAGNOSTIC STRIP TEST SCH ×5 (00:20→23:35)
[2022-05-02] MEDS: INSULIN LISPRO 100 UNITS/ML SUBCUT SCH ×10 (00:24→23:35)
[2022-05-02] MEDS: IPRATROPIUM/ALBUTEROL 0.5-3(2.5)MG/3ML NEB HHN SCH ×4 (02:16→20:51)
[2022-05-02] MEDS: SULFAMETHOXAZOLE/TRIMETHOPRIM 200-40 MG/5ML 5ML ORAL SYR PO SCH ×3 (02:51→17:28)
[2022-05-02] MEDS: METHYLPREDNISOLONE SOD SUCC 40 MG/ML VIAL IV SCH ×3 (02:51→20:18)
[2022-05-02 06:05] LABS: HEMATOCRIT. 26.3 % (36.0-48.0); HEMOGLOBIN. 8.3 g/dL (12.0-16.0); MEAN CORPUSCULAR HEMOGLOBIN 26.5 pg (28.0-32.0); MEAN CORPUSCULAR VOLUME 83.8 fL (81.0-99.0); MEAN PLATELET VOLUME 10.1 fl (7.4-10.4); PLATELET 154 x1000/uL (130-400); RED BLOOD CELL COUNT 3.14 mill/uL (4.2-5.4); RED CELL DISTRIBUTION WIDTH 15.9 % (11.6-14.6)
[2022-05-02 06:25] LABS: PHOSPHORUS 3.9 mg/dL (2.5-4.9)
[2022-05-02] MEDS: ASPIRIN 81MG TABLET NG SCH (08:47)
[2022-05-02] MEDS: LEVOTHYROXINE SODIUM 150MCG TABLET PO SCH (08:47)
[2022-05-02] MEDS: CYANOCOBALAMIN 1000MCG TABLET GT SCH (08:47)
[2022-05-02] MEDS: PANTOPRAZOLE SODIUM 40 MG/VIAL IV SCH (08:47)
[2022-05-02] MEDS: FUROSEMIDE 40MG TABLET PO SCH (08:47)
[2022-05-02] MEDS: ATORVASTATIN CALCIUM 20MG TABLET PO SCH (08:47)
[2022-05-02] MEDS: TACROLIMUS 1MG/PACKET GT SCH ×2 (08:48→17:30)
[2022-05-02] MEDS: AMLODIPINE 5MG TABLET PO SCH ×2 (08:49→20:20)
[2022-05-02] MEDS: PSYLLIUM SEED PACKET PO SCH ×2 (08:50→17:27)
[2022-05-02] MEDS: INSULIN GLARGINE 100 UNITS/ML SUBCUT SCH (10:55)
[2022-05-02] MEDS: ENOXAPARIN 40MG/0.4ML SYR SUBCUT SCH (20:19)
[2022-05-02 21:52] LABS: PLATELET ESTIMATE NORMAL
[2022-05-03] VITALS (12 sets, daily range): BP systolic 131–177; BP diastolic 34–77
[2022-05-03] MEDS: INSULIN LISPRO 100 UNITS/ML SUBCUT SCH ×7 (00:12→17:41)
[2022-05-03] MEDS: IPRATROPIUM/ALBUTEROL 0.5-3(2.5)MG/3ML NEB HHN SCH ×4 (02:03→20:27)
[2022-05-03] MEDS: SULFAMETHOXAZOLE/TRIMETHOPRIM 200-40 MG/5ML 5ML ORAL SYR PO SCH ×3 (02:24→17:41)
[2022-05-03] MEDS: HYDRALAZINE 20MG/ML VIAL IV PRN (05:42)
[2022-05-03] MEDS: BLOOD SUGAR DIAGNOSTIC STRIP TEST SCH ×3 (05:43→17:03)
[2022-05-03 05:56] LABS: HEMATOCRIT. 27.1 % (36.0-48.0); HEMOGLOBIN. 8.7 g/dL (12.0-16.0); MEAN CORPUSCULAR HEMOGLOBIN 27.1 pg (28.0-32.0); MEAN CORPUSCULAR VOLUME 84.7 fL (81.0-99.0); MEAN PLATELET VOLUME 9.9 fl (7.4-10.4); PLATELET 152 x1000/uL (130-400); RED BLOOD CELL COUNT 3.21 mill/uL (4.2-5.4); RED CELL DISTRIBUTION WIDTH 16.2 % (11.6-14.6)
[2022-05-03] MEDS: CLONIDINE 0.1MG TABLET PO PRN (06:43)
[2022-05-03 07:10] LABS: PHOSPHORUS 3.2 mg/dL (2.5-4.9)
[2022-05-03] MEDS: PANTOPRAZOLE SODIUM 40 MG/VIAL IV SCH (09:17)
[2022-05-03] MEDS: METHYLPREDNISOLONE SOD SUCC 40 MG/ML VIAL IV SCH ×2 (09:17→21:56)
[2022-05-03] MEDS: CYANOCOBALAMIN 1000MCG TABLET GT SCH (09:18)
[2022-05-03] MEDS: TACROLIMUS 1MG/PACKET GT SCH ×2 (09:18→17:44)
[2022-05-03] MEDS: AMLODIPINE 5MG TABLET PO SCH ×2 (09:26→21:56)
[2022-05-03] MEDS: ASPIRIN 81MG TABLET NG SCH (09:27)
[2022-05-03] MEDS: FUROSEMIDE 40MG TABLET PO SCH (09:27)
[2022-05-03] MEDS: PSYLLIUM SEED PACKET PO SCH ×2 (09:27→17:41)
[2022-05-03] MEDS: LEVOTHYROXINE SODIUM 150MCG TABLET PO SCH (09:27)
[2022-05-03] MEDS: ATORVASTATIN CALCIUM 20MG TABLET PO SCH (09:27)
[2022-05-03] MEDS: INSULIN GLARGINE 100 UNITS/ML SUBCUT SCH (09:33)
[2022-05-03 09:34] LABS: BG BASE EXCESS 3.1 mmol/L (-2.0-2.0); BG CARBOXYHEMOGLOBIN 0.1 % (0.5-1.5); BG DEOXYHEMOGLOBIN 23.1 % (0.0-5.0); BG FRACTION INSPIRED OXYGEN 60; BG HCO3 ACT 25.5 mmol/L (22.0-26.0); BG METHEMOGLOBIN 0.5 % (0.0-1.5); BG OXYGEN SATURATION 76.8 % (92.0-98.5); BG OXYHEMOGLOBIN 76.3 % (94.0-97.0); BG PCO2 31.4 mmHg (35.0-45.0); BG PH 7.527 (7.350-7.450); BG PO2 39.6 mmHg (75.0-100.0); BG SAMPLE SITE RIGHT RADIAL; BG VENT MODE HIGH FLOW
[2022-05-03 13:53] LABS: PLATELET ESTIMATE NORMAL
[2022-05-03 17:06] LABS: OVA & PARASITE EXAM Final report (.)
[2022-05-03] MEDS: ENOXAPARIN 40MG/0.4ML SYR SUBCUT SCH (21:50)
[2022-05-04] VITALS (13 sets, daily range): BP systolic 140–176; BP diastolic 54–96
[2022-05-04] MEDS: BLOOD SUGAR DIAGNOSTIC STRIP TEST SCH ×4 (00:14→18:22)
[2022-05-04] MEDS: IPRATROPIUM/ALBUTEROL 0.5-3(2.5)MG/3ML NEB HHN SCH ×4 (01:37→20:14)
[2022-05-04] MEDS: HYDRALAZINE 20MG/ML VIAL IV PRN ×2 (02:12→11:18)
[2022-05-04] MEDS: SULFAMETHOXAZOLE/TRIMETHOPRIM 200-40 MG/5ML 5ML ORAL SYR PO SCH ×3 (02:13→18:30)
[2022-05-04] MEDS: LORAZEPAM 0.5MG TABLET PO PRN ×2 (03:09→11:28)
[2022-05-04] MEDS: INSULIN LISPRO 100 UNITS/ML SUBCUT SCH ×8 (06:00→18:00)
[2022-05-04 06:22] LABS: HEMATOCRIT. 30.5 % (36.0-48.0); HEMOGLOBIN. 9.5 g/dL (12.0-16.0); MEAN CORPUSCULAR HEMOGLOBIN 26.6 pg (28.0-32.0); MEAN CORPUSCULAR VOLUME 85.7 fL (81.0-99.0); MEAN PLATELET VOLUME 10.2 fl (7.4-10.4); PLATELET 192 x1000/uL (130-400); RED BLOOD CELL COUNT 3.55 mill/uL (4.2-5.4); RED CELL DISTRIBUTION WIDTH 17.3 % (11.6-14.6)
[2022-05-04] MEDS: LEVOTHYROXINE SODIUM 150MCG TABLET PO SCH (07:30)
[2022-05-04] MEDS: FUROSEMIDE 40MG TABLET PO SCH (08:17)
[2022-05-04] MEDS: CYANOCOBALAMIN 1000MCG TABLET GT SCH (08:17)
[2022-05-04] MEDS: ASPIRIN 81MG TABLET NG SCH (08:17)
[2022-05-04] MEDS: TACROLIMUS 1MG/PACKET GT SCH ×2 (08:17→18:30)
[2022-05-04] MEDS: PSYLLIUM SEED PACKET PO SCH ×2 (08:18→17:00)
[2022-05-04] MEDS: ATORVASTATIN CALCIUM 20MG TABLET PO SCH (08:18)
[2022-05-04] MEDS: AMLODIPINE 5MG TABLET PO SCH ×2 (08:18→21:31)
[2022-05-04] MEDS: PANTOPRAZOLE SODIUM 40 MG/VIAL IV SCH (11:17)
[2022-05-04] MEDS: METHYLPREDNISOLONE SOD SUCC 40 MG/ML VIAL IV SCH ×2 (11:18→21:32)
[2022-05-04] MEDS: FLUCONAZOLE 100MG TABLET PO SCH (11:18)
[2022-05-04] MEDS: INSULIN GLARGINE 100 UNITS/ML SUBCUT SCH (11:19)
[2022-05-04 14:24] LABS: PLATELET ESTIMATE NORMAL
[2022-05-04] MEDS: ENOXAPARIN 40MG/0.4ML SYR SUBCUT SCH (21:28)
[2022-05-04] MEDS: TRAZODONE HCL 50MG TABLET PO SCH (21:29)
[2022-05-04] MEDS: DOXAZOSIN MESYLATE 2MG TABLET PO SCH (21:34)
[2022-05-05] VITALS (13 sets, daily range): BP systolic 112–156; BP diastolic 38–87
[2022-05-05] MEDS: IPRATROPIUM/ALBUTEROL 0.5-3(2.5)MG/3ML NEB HHN SCH ×4 (01:59→18:00)
[2022-05-05] MEDS: INSULIN LISPRO 100 UNITS/ML SUBCUT SCH ×8 (06:00→23:48)
[2022-05-05 06:17] LABS: HEMATOCRIT. 28.6 % (36.0-48.0); HEMOGLOBIN. 8.8 g/dL (12.0-16.0); MEAN CORPUSCULAR HEMOGLOBIN 27.2 pg (28.0-32.0); MEAN CORPUSCULAR VOLUME 88.7 fL (81.0-99.0); MEAN PLATELET VOLUME 9.7 fl (7.4-10.4); PLATELET 142 x1000/uL (130-400); RED BLOOD CELL COUNT 3.23 mill/uL (4.2-5.4); RED CELL DISTRIBUTION WIDTH 19.4 % (11.6-14.6)
[2022-05-05 06:26] LABS: PHOSPHORUS 2.8 mg/dL (2.5-4.9)
[2022-05-05] MEDS: LEVOTHYROXINE SODIUM 150MCG TABLET PO SCH (06:30)
[2022-05-05] MEDS: BLOOD SUGAR DIAGNOSTIC STRIP TEST SCH ×4 (06:30→23:47)
[2022-05-05 08:54] LABS: BG BASE EXCESS 0.8 mmol/L (-2.0-2.0); BG CARBOXYHEMOGLOBIN 0.5 % (0.5-1.5); BG DEOXYHEMOGLOBIN 8.3 % (0.0-5.0); BG FRACTION INSPIRED OXYGEN 100; BG HCO3 ACT 24.2 mmol/L (22.0-26.0); BG METHEMOGLOBIN 0.4 % (0.0-1.5); BG OXYGEN SATURATION 91.6 % (92.0-98.5); BG OXYHEMOGLOBIN 90.8 % (94.0-97.0); BG PCO2 33.5 mmHg (35.0-45.0); BG PH 7.476 (7.350-7.450); BG PO2 63.9 mmHg (75.0-100.0); BG SAMPLE SITE RIGHT RADIAL; BG TOTAL HEMOGLOBIN 8.8 g/dL (12.0-18.0); BG TOTAL RESPIRATORY RATE 26 b/min; BG VENT MODE MASK - BIPAP
[2022-05-05] MEDS: ATORVASTATIN CALCIUM 20MG TABLET PO SCH (09:00)
[2022-05-05] MEDS: FUROSEMIDE 40MG TABLET PO SCH (09:00)
[2022-05-05] MEDS: TACROLIMUS 1MG/PACKET GT SCH ×2 (09:00→18:03)
[2022-05-05] MEDS: CYANOCOBALAMIN 1000MCG TABLET GT SCH (09:00)
[2022-05-05] MEDS: ASPIRIN 81MG TABLET NG SCH (09:00)
[2022-05-05] MEDS: FLUCONAZOLE 100MG TABLET PO SCH (10:53)
[2022-05-05] MEDS: METHYLPREDNISOLONE SOD SUCC 40 MG/ML VIAL IV SCH ×2 (10:53→20:09)
[2022-05-05] MEDS: PANTOPRAZOLE SODIUM 40 MG/VIAL IV SCH (10:53)
[2022-05-05] MEDS: AMLODIPINE 5MG TABLET PO SCH ×2 (10:54→20:11)
[2022-05-05] MEDS: DOXAZOSIN MESYLATE 2MG TABLET PO SCH (20:10)
[2022-05-05] MEDS: TRAZODONE HCL 50MG TABLET PO SCH (20:11)
[2022-05-05] MEDS: ENOXAPARIN 40MG/0.4ML SYR SUBCUT SCH (20:11)
[2022-05-05 22:34] LABS: PLATELET ESTIMATE NORMAL
[2022-05-06] VITALS (16 sets, daily range): BP systolic 101–176; BP diastolic 31–97
[2022-05-06] MEDS: IPRATROPIUM/ALBUTEROL 0.5-3(2.5)MG/3ML NEB HHN SCH ×4 (00:45→21:22)
[2022-05-06] MEDS: INSULIN LISPRO 100 UNITS/ML SUBCUT SCH ×8 (05:46→23:31)
[2022-05-06] MEDS: BLOOD SUGAR DIAGNOSTIC STRIP TEST SCH ×4 (05:46→23:27)
[2022-05-06 07:31] LABS: HEMATOCRIT. 26.3 % (36.0-48.0); HEMOGLOBIN. 8.3 g/dL (12.0-16.0); MEAN CORPUSCULAR HEMOGLOBIN 27.3 pg (28.0-32.0); MEAN CORPUSCULAR VOLUME 86.8 fL (81.0-99.0); MEAN PLATELET VOLUME 9.4 fl (7.4-10.4); PLATELET 149 x1000/uL (130-400); RED BLOOD CELL COUNT 3.03 mill/uL (4.2-5.4); RED CELL DISTRIBUTION WIDTH 19.4 % (11.6-14.6)
[2022-05-06] MEDS: CYANOCOBALAMIN 1000MCG TABLET GT SCH (09:00)
[2022-05-06] MEDS: AMLODIPINE 5MG TABLET PO SCH ×2 (09:00→20:35)
[2022-05-06] MEDS: FLUCONAZOLE 100MG TABLET PO SCH (09:17)
[2022-05-06] MEDS: ASPIRIN 81MG TABLET NG SCH (09:17)
[2022-05-06] MEDS: LEVOTHYROXINE SODIUM 150MCG TABLET PO SCH (09:17)
[2022-05-06] MEDS: ATORVASTATIN CALCIUM 20MG TABLET PO SCH (09:17)
[2022-05-06] MEDS: FUROSEMIDE 40MG TABLET PO SCH (09:17)
[2022-05-06] MEDS: PANTOPRAZOLE SODIUM 40 MG/VIAL IV SCH (09:17)
[2022-05-06] MEDS: METHYLPREDNISOLONE SOD SUCC 40 MG/ML VIAL IV SCH ×3 (09:17→22:09)
[2022-05-06] MEDS: TACROLIMUS 1MG/PACKET GT SCH ×2 (09:17→17:00)
[2022-05-06 09:35] LABS: BG BASE EXCESS -3.6 mmol/L (-2.0-2.0); BG CARBOXYHEMOGLOBIN 0.3 % (0.5-1.5); BG DEOXYHEMOGLOBIN 35.5 % (0.0-5.0); BG FRACTION INSPIRED OXYGEN 100; BG HCO3 ACT 18.9 mmol/L (22.0-26.0); BG OXYHEMOGLOBIN 63.2 % (94.0-97.0); BG PCO2 26.2 mmHg (35.0-45.0); BG PH 7.477 (7.350-7.450); BG PO2 34.3 mmHg (75.0-100.0); BG SAMPLE SITE LEFT BRACHIAL; BG TOTAL HEMOGLOBIN 9.8 g/dL (12.0-18.0); BG VENT MODE HIGH FLOW
[2022-05-06] MEDS ORDERED: INSULIN GLARGINE 100 UNITS/ML SUBCUT SCH (10:00)
[2022-05-06 14:12] LABS: BG BASE EXCESS 1.3 mmol/L (-2.0-2.0); BG CARBOXYHEMOGLOBIN 0.4 % (0.5-1.5); BG DEOXYHEMOGLOBIN 12.1 % (0.0-5.0); BG FRACTION INSPIRED OXYGEN 100; BG HCO3 ACT 24.2 mmol/L (22.0-26.0); BG METHEMOGLOBIN 0.4 % (0.0-1.5); BG OXYGEN SATURATION 87.8 % (92.0-98.5); BG OXYHEMOGLOBIN 87.1 % (94.0-97.0); BG PCO2 31.8 mmHg (35.0-45.0); BG SAMPLE SITE RIGHT RADIAL; BG TOTAL HEMOGLOBIN 9.2 g/dL (12.0-18.0); BG VENT MODE MASK - BIPAP
[2022-05-06 15:06] LABS: NUCLEATED RED BLOOD CELLS 2 /100 WBC; PLATELET ESTIMATE NORMAL
[2022-05-06] MEDS: CLONIDINE 0.1MG TABLET PO PRN (15:18)
[2022-05-06] MEDS: HYDRALAZINE 20MG/ML VIAL IV PRN ×2 (18:35→23:04)
[2022-05-06] MEDS: ENOXAPARIN 40MG/0.4ML SYR SUBCUT SCH (20:24)
[2022-05-06] MEDS: DOXAZOSIN MESYLATE 2MG TABLET PO SCH (20:35)
[2022-05-06] MEDS: TRAZODONE HCL 50MG TABLET PO SCH (20:35)
[2022-05-07] VITALS (43 sets, daily range): BP systolic 86–173; BP diastolic 34–100
[2022-05-07] MEDS: IPRATROPIUM/ALBUTEROL 0.5-3(2.5)MG/3ML NEB HHN SCH ×5 (02:27→20:46)
[2022-05-07] MEDS: METHYLPREDNISOLONE SOD SUCC 40 MG/ML VIAL IV SCH ×3 (05:11→21:51)
[2022-05-07] MEDS: BLOOD SUGAR DIAGNOSTIC STRIP TEST SCH ×3 (06:09→17:25)
[2022-05-07 06:19] LABS: HEMATOCRIT. 27.5 % (36.0-48.0); HEMOGLOBIN. 8.6 g/dL (12.0-16.0); MEAN CORPUSCULAR HEMOGLOBIN 27.2 pg (28.0-32.0); MEAN CORPUSCULAR VOLUME 86.9 fL (81.0-99.0); MEAN PLATELET VOLUME 9.8 fl (7.4-10.4); PLATELET 177 x1000/uL (130-400); RED BLOOD CELL COUNT 3.17 mill/uL (4.2-5.4)
[2022-05-07] MEDS: INSULIN LISPRO 100 UNITS/ML SUBCUT SCH ×6 (06:41→17:25)
[2022-05-07] MEDS: LEVOTHYROXINE SODIUM 150MCG TABLET PO SCH (07:30)
[2022-05-07] MEDS: FUROSEMIDE 40MG TABLET PO SCH (09:00)
[2022-05-07] MEDS: ATORVASTATIN CALCIUM 20MG TABLET PO SCH (09:00)
[2022-05-07] MEDS: TACROLIMUS 1MG/PACKET GT SCH ×2 (09:00→17:41)
[2022-05-07] MEDS: ASPIRIN 81MG TABLET NG SCH (09:00)
[2022-05-07] MEDS: CYANOCOBALAMIN 1000MCG TABLET GT SCH (09:00)
[2022-05-07] MEDS: AMLODIPINE 5MG TABLET PO SCH ×2 (09:00→21:58)
[2022-05-07] MEDS: FLUCONAZOLE 100MG TABLET PO SCH (09:00)
[2022-05-07] MEDS ORDERED: SODIUM CHLORIDE 0.9% 10ML VIAL ONE (09:20)
[2022-05-07] MEDS ORDERED: ATROPINE SULFATE 1MG/10ML SYR ONE (09:20)
[2022-05-07] MEDS ORDERED: ETOMIDATE 2MG/ML 10ML VIAL IV ONE (09:20)
[2022-05-07] MEDS ORDERED: VECURONIUM BROMIDE 10 MG/VIAL IV ONE (09:20)
[2022-05-07] MEDS ORDERED: EPINEPHRINE 0.1MG/ML (1:10,000) 10ML SYR ONE (09:20)
[2022-05-07] MEDS: PANTOPRAZOLE SODIUM 40 MG/VIAL IV SCH (09:39)
[2022-05-07] MEDS: INSULIN GLARGINE 100 UNITS/ML SUBCUT SCH (10:00)
[2022-05-07] MEDS ORDERED: MORPHINE SULFATE 2 MG/ML CPJ (NOT FOR IM USE) IV NR (13:15)
[2022-05-07 14:32] LABS: BG BASE EXCESS -5.1 mmol/L (-2.0-2.0); BG CARBOXYHEMOGLOBIN 0.2 % (0.5-1.5); BG DEOXYHEMOGLOBIN 21.1 % (0.0-5.0); BG FRACTION INSPIRED OXYGEN 100; BG HCO3 ACT 18.6 mmol/L (22.0-26.0); BG METHEMOGLOBIN 0.2 % (0.0-1.5); BG OXYGEN SATURATION 78.8 % (92.0-98.5); BG OXYHEMOGLOBIN 78.5 % (94.0-97.0); BG PCO2 29.9 mmHg (35.0-45.0); BG PH 7.411 (7.350-7.450); BG PO2 46.9 mmHg (75.0-100.0); BG SAMPLE SITE RIGHT RADIAL; BG TOTAL RESPIRATORY RATE 22 b/min; BG VENT MODE MASK - BIPAP
[2022-05-07] MEDS ORDERED: PROPOFOL 10MG/ML 100ML 100 ML IV PRN ×2 (15:30→15:45)
[2022-05-07] MEDS ORDERED: FENTANYL 2500MCG/250ML PMX 250 ML IV ONE (15:45)
[2022-05-07] MEDS ORDERED: FENTANYL 2500MCG/250ML PMX 250 ML IV NR (16:00)
[2022-05-07 16:48] LABS: BG BASE EXCESS -2.9 mmol/L (-2.0-2.0); BG CARBOXYHEMOGLOBIN 0.6 % (0.5-1.5); BG DEOXYHEMOGLOBIN 24.4 % (0.0-5.0); BG FRACTION INSPIRED OXYGEN 100; BG HCO3 ACT 24.3 mmol/L (22.0-26.0); BG METHEMOGLOBIN 0.2 % (0.0-1.5); BG OXYGEN SATURATION 75.4 % (92.0-98.5); BG OXYHEMOGLOBIN 74.8 % (94.0-97.0); BG PCO2 53.9 mmHg (35.0-45.0); BG PH 7.271 (7.350-7.450); BG PO2 50.2 mmHg (75.0-100.0); BG SAMPLE SITE RIGHT RADIAL; BG TOTAL RESPIRATORY RATE 34 b/min; BG VENT MODE VENT - AC
[2022-05-07] MEDS: MIDAZOLAM 100MG/100ML PMX 100 ML IV PRN (17:47)
[2022-05-07] MEDS: NOREPINEPHRINE 8 MG in DEXT 5% WATER 242 ML IV PRN (17:50)
[2022-05-07] MEDS: MEROPENEM 500 MG in SODIUM CHLORIDE 0.9% 50 ML IV SCH (19:36)
[2022-05-07 20:10] LABS: BG BASE EXCESS -2.4 mmol/L (-2.0-2.0); BG CARBOXYHEMOGLOBIN 0.5 % (0.5-1.5); BG DEOXYHEMOGLOBIN 23.4 % (0.0-5.0); BG FRACTION INSPIRED OXYGEN 100; BG HCO3 ACT 23.6 mmol/L (22.0-26.0); BG METHEMOGLOBIN 0.5 % (0.0-1.5); BG OXYGEN SATURATION 76.4 % (92.0-98.5); BG OXYHEMOGLOBIN 75.6 % (94.0-97.0); BG PCO2 46.9 mmHg (35.0-45.0); BG PO2 46.8 mmHg (75.0-100.0); BG SAMPLE SITE RIGHT RADIAL; BG TOTAL HEMOGLOBIN 8.7 g/dL (12.0-18.0); BG VENT MODE VENT - AC
[2022-05-07 20:23] LABS: BG VENT RATE 26 set
[2022-05-07] MEDS: DOXAZOSIN MESYLATE 2MG TABLET PO SCH (21:00)
[2022-05-07] MEDS: TRAZODONE HCL 50MG TABLET PO SCH (21:00)
[2022-05-07] MEDS: ENOXAPARIN 40MG/0.4ML SYR SUBCUT SCH (21:51)
[2022-05-07] MEDS: SULFAMETHOXAZOLE/TRIMETHOPRIM 200-40 MG/5ML 5ML ORAL SYR GT SCH (21:52)
[2022-05-08] VITALS (98 sets, daily range): BP systolic 98–155; BP diastolic 45–76
[2022-05-08] MEDS: INSULIN LISPRO 100 UNITS/ML SUBCUT SCH ×10 (00:07→23:10)
[2022-05-08] MEDS: BLOOD SUGAR DIAGNOSTIC STRIP TEST SCH ×5 (00:09→23:10)
[2022-05-08] MEDS: IPRATROPIUM/ALBUTEROL 0.5-3(2.5)MG/3ML NEB HHN SCH ×4 (02:25→20:05)
[2022-05-08] MEDS: MIDAZOLAM 100MG/100ML PMX 100 ML IV PRN (02:45)
[2022-05-08] MEDS ORDERED: FENTANYL 2500MCG/250ML PMX 250 ML IV PRN (04:30)
[2022-05-08] MEDS: NOREPINEPHRINE 8 MG in DEXT 5% WATER 242 ML IV PRN (05:13)
[2022-05-08] MEDS: METHYLPREDNISOLONE SOD SUCC 40 MG/ML VIAL IV SCH ×3 (05:13→21:51)
[2022-05-08 07:23] LABS: HEMATOCRIT. 24.6 % (36.0-48.0); HEMOGLOBIN. 7.6 g/dL (12.0-16.0); MEAN CORPUSCULAR HEMOGLOBIN 27.3 pg (28.0-32.0); MEAN CORPUSCULAR VOLUME 88.7 fL (81.0-99.0); MEAN PLATELET VOLUME 9.5 fl (7.4-10.4); PLATELET 167 x1000/uL (130-400); RED BLOOD CELL COUNT 2.77 mill/uL (4.2-5.4)
[2022-05-08 07:42] LABS: PHOSPHORUS 7.2 mg/dL (2.5-4.9)
[2022-05-08 07:54] LABS: NUCLEATED RED BLOOD CELLS 1 /100 WBC; PLATELET ESTIMATE NORMAL
[2022-05-08] MEDS: AMLODIPINE 5MG TABLET PO SCH ×2 (09:00→21:50)
[2022-05-08] MEDS: TACROLIMUS 1MG/PACKET GT SCH ×2 (09:19→21:54)
[2022-05-08] MEDS: LEVOTHYROXINE SODIUM 150MCG TABLET PO SCH (09:19)
[2022-05-08] MEDS: FUROSEMIDE 40MG TABLET PO SCH (09:19)
[2022-05-08] MEDS: PANTOPRAZOLE SODIUM 40 MG/VIAL IV SCH (09:19)
[2022-05-08] MEDS: ASPIRIN 81MG TABLET NG SCH (09:19)
[2022-05-08] MEDS: ATORVASTATIN CALCIUM 20MG TABLET PO SCH (09:19)
[2022-05-08] MEDS: CYANOCOBALAMIN 1000MCG TABLET GT SCH (09:19)
[2022-05-08] MEDS: FLUCONAZOLE 100MG TABLET PO SCH (09:19)
[2022-05-08] MEDS: SULFAMETHOXAZOLE/TRIMETHOPRIM 200-40 MG/5ML 5ML ORAL SYR GT SCH ×2 (09:22→21:54)
[2022-05-08] MEDS: MEROPENEM 500 MG in SODIUM CHLORIDE 0.9% 50 ML IV SCH ×2 (09:22→21:48)
[2022-05-08] MEDS: INSULIN GLARGINE 100 UNITS/ML SUBCUT SCH (10:42)
[2022-05-08 11:23] LABS: BG BASE EXCESS -0.8 mmol/L (-2.0-2.0); BG CARBOXYHEMOGLOBIN 0.6 % (0.5-1.5); BG FRACTION INSPIRED OXYGEN 100; BG METHEMOGLOBIN 0.3 % (0.0-1.5); BG OXYGEN SATURATION 91.9 % (92.0-98.5); BG OXYHEMOGLOBIN 91.1 % (94.0-97.0); BG PH 7.343 (7.350-7.450); BG PO2 68.4 mmHg (75.0-100.0); BG SAMPLE SITE RIGHT RADIAL; BG TOTAL HEMOGLOBIN 7.7 g/dL (12.0-18.0); BG VENT MODE VENT - AC
[2022-05-08 12:21] LABS: PLATELET ESTIMATE NORMAL
[2022-05-08] MEDS: DOXAZOSIN MESYLATE 2MG TABLET PO SCH (21:00)
[2022-05-08] MEDS: TRAZODONE HCL 50MG TABLET PO SCH (21:48)
[2022-05-09] VITALS (91 sets, daily range): BP systolic 99–153; BP diastolic 40–96
[2022-05-09] MEDS: IPRATROPIUM/ALBUTEROL 0.5-3(2.5)MG/3ML NEB HHN SCH ×4 (01:52→20:14)
[2022-05-09] MEDS: MIDAZOLAM 100MG/100ML PMX 100 ML IV PRN (05:04)
[2022-05-09 06:12] LABS: HEMATOCRIT. 25.8 % (36.0-48.0); MEAN CORPUSCULAR HEMOGLOBIN 27.4 pg (28.0-32.0); MEAN CORPUSCULAR VOLUME 88.3 fL (81.0-99.0); MEAN PLATELET VOLUME 9.7 fl (7.4-10.4); PLATELET 168 x1000/uL (130-400); RED BLOOD CELL COUNT 2.92 mill/uL (4.2-5.4); RED CELL DISTRIBUTION WIDTH 20.1 % (11.6-14.6)
[2022-05-09] MEDS: BLOOD SUGAR DIAGNOSTIC STRIP TEST SCH ×4 (06:30→21:14)
[2022-05-09 06:31] LABS: PHOSPHORUS 5.1 mg/dL (2.5-4.9)
[2022-05-09] MEDS: METHYLPREDNISOLONE SOD SUCC 40 MG/ML VIAL IV SCH ×3 (06:53→21:10)
[2022-05-09] MEDS: INSULIN LISPRO 100 UNITS/ML SUBCUT SCH ×8 (06:54→23:21)
[2022-05-09] MEDS: LEVOTHYROXINE SODIUM 150MCG TABLET PO SCH (06:58)
[2022-05-09] MEDS: TACROLIMUS 1MG/PACKET GT SCH ×2 (08:26→17:59)
[2022-05-09] MEDS: FUROSEMIDE 40MG TABLET PO SCH (08:26)
[2022-05-09] MEDS: ASPIRIN 81MG TABLET NG SCH (08:26)
[2022-05-09] MEDS: ATORVASTATIN CALCIUM 20MG TABLET PO SCH (08:26)
[2022-05-09] MEDS: CYANOCOBALAMIN 1000MCG TABLET GT SCH (08:26)
[2022-05-09] MEDS: PANTOPRAZOLE SODIUM 40 MG/VIAL IV SCH (08:27)
[2022-05-09] MEDS: SULFAMETHOXAZOLE/TRIMETHOPRIM 200-40 MG/5ML 5ML ORAL SYR GT SCH ×2 (08:27→21:14)
[2022-05-09] MEDS: FLUCONAZOLE 100MG TABLET PO SCH (08:27)
[2022-05-09] MEDS: MEROPENEM 500 MG in SODIUM CHLORIDE 0.9% 50 ML IV SCH ×2 (08:27→21:11)
[2022-05-09] MEDS: AMLODIPINE 5MG TABLET PO SCH ×2 (09:00→21:12)
[2022-05-09] MEDS ORDERED: DEXTROSE 50% WATER 50ML SYRINGE IV PRN (10:00)
[2022-05-09] MEDS: INSULIN GLARGINE 100 UNITS/ML SUBCUT SCH (10:55)
[2022-05-09 11:27] LABS: PLATELET ESTIMATE NORMAL
[2022-05-09 14:35] LABS: BG CARBOXYHEMOGLOBIN 0.8 % (0.5-1.5); BG DEOXYHEMOGLOBIN 15.5 % (0.0-5.0); BG FRACTION INSPIRED OXYGEN 95; BG HCO3 ACT 16.5 mmol/L (22.0-26.0); BG METHEMOGLOBIN 0.1 % (0.0-1.5); BG OXYGEN SATURATION 84.4 % (92.0-98.5); BG OXYHEMOGLOBIN 83.6 % (94.0-97.0); BG PH 7.358 (7.350-7.450); BG PO2 52.6 mmHg (75.0-100.0); BG SAMPLE SITE RIGHT RADIAL; BG TOTAL HEMOGLOBIN 9.2 g/dL (12.0-18.0); BG VENT MODE PRVC
[2022-05-09] MEDS: DOXAZOSIN MESYLATE 2MG TABLET PO SCH (21:00)
[2022-05-09] MEDS: TRAZODONE HCL 50MG TABLET PO SCH (21:12)
[2022-05-10] VITALS (70 sets, daily range): BP systolic 72–133; BP diastolic 30–70
[2022-05-10] MEDS: IPRATROPIUM/ALBUTEROL 0.5-3(2.5)MG/3ML NEB HHN SCH ×4 (01:05→20:41)
[2022-05-10] MEDS: FENTANYL CITRATE/PF 2,500 MCG in SODIUM CHLORIDE 0.9% 200 ML IV PRN (01:56)
[2022-05-10] MEDS: MIDAZOLAM HCL 100 MG in SODIUM CHLORIDE 0.9% 80 ML IV PRN (01:57)
[2022-05-10 05:40] LABS: HEMOGLOBIN. 7.7 g/dL (12.0-16.0); MEAN CORPUSCULAR HEMOGLOBIN 27.2 pg (28.0-32.0); MEAN CORPUSCULAR VOLUME 88.8 fL (81.0-99.0); MEAN PLATELET VOLUME 9.7 fl (7.4-10.4); PLATELET 163 x1000/uL (130-400); RED BLOOD CELL COUNT 2.81 mill/uL (4.2-5.4); RED CELL DISTRIBUTION WIDTH 19.9 % (11.6-14.6)
[2022-05-10] MEDS: LEVOTHYROXINE SODIUM 150MCG TABLET PO SCH (06:50)
[2022-05-10] MEDS: METHYLPREDNISOLONE SOD SUCC 40 MG/ML VIAL IV SCH ×3 (06:50→21:27)
[2022-05-10] MEDS: BLOOD SUGAR DIAGNOSTIC STRIP TEST SCH ×3 (06:51→17:09)
[2022-05-10] MEDS: INSULIN LISPRO 100 UNITS/ML SUBCUT SCH ×6 (06:51→17:57)
[2022-05-10 06:54] LABS: PHOSPHORUS 6.7 mg/dL (2.5-4.9)
[2022-05-10] MEDS: PANTOPRAZOLE SODIUM 40 MG/VIAL IV SCH (08:54)
[2022-05-10] MEDS: MEROPENEM 500 MG in SODIUM CHLORIDE 0.9% 50 ML IV SCH ×2 (08:55→20:58)
[2022-05-10] MEDS: ASPIRIN 81MG TABLET NG SCH (08:55)
[2022-05-10] MEDS: FUROSEMIDE 40MG TABLET PO SCH (08:55)
[2022-05-10] MEDS: TACROLIMUS 1MG/PACKET GT SCH ×2 (08:55→17:56)
[2022-05-10] MEDS: CYANOCOBALAMIN 1000MCG TABLET GT SCH (08:55)
[2022-05-10] MEDS: SULFAMETHOXAZOLE/TRIMETHOPRIM 200-40 MG/5ML 5ML ORAL SYR GT SCH ×2 (08:55→20:59)
[2022-05-10] MEDS: FLUCONAZOLE 100MG TABLET PO SCH (08:55)
[2022-05-10] MEDS ORDERED: INSULIN GLARGINE 100 UNITS/ML SUBCUT SCH (10:00)
[2022-05-10 10:05] LABS: NUCLEATED RED BLOOD CELLS 2 /100 WBC; PLATELET ESTIMATE NORMAL
[2022-05-10 16:01] LABS: BG BASE EXCESS 1.8 mmol/L (-2.0-2.0); BG CARBOXYHEMOGLOBIN 0.2 % (0.5-1.5); BG DEOXYHEMOGLOBIN 14.2 % (0.0-5.0); BG FRACTION INSPIRED OXYGEN 100; BG HCO3 ACT 27.6 mmol/L (22.0-26.0); BG METHEMOGLOBIN 0.4 % (0.0-1.5); BG OXYGEN SATURATION 85.7 % (92.0-98.5); BG OXYHEMOGLOBIN 85.2 % (94.0-97.0); BG PCO2 48.9 mmHg (35.0-45.0); BG PH 7.369 (7.350-7.450); BG PO2 54.9 mmHg (75.0-100.0); BG SAMPLE SITE RIGHT RADIAL; BG TOTAL HEMOGLOBIN 9.4 g/dL (12.0-18.0); BG VENT MODE VENT - AC
[2022-05-10] MEDS: TRAZODONE HCL 50MG TABLET PO SCH (20:59)
[2022-05-11] VITALS (86 sets, daily range): BP systolic 92–144; BP diastolic 37–73
[2022-05-11] MEDS: BLOOD SUGAR DIAGNOSTIC STRIP TEST SCH ×4 (00:11→18:09)
[2022-05-11] MEDS: INSULIN LISPRO 100 UNITS/ML SUBCUT SCH ×8 (00:17→18:18)
[2022-05-11] MEDS: MIDAZOLAM HCL 100 MG in SODIUM CHLORIDE 0.9% 80 ML IV PRN ×2 (00:55→18:10)
[2022-05-11] MEDS: FENTANYL CITRATE/PF 2,500 MCG in SODIUM CHLORIDE 0.9% 200 ML IV PRN (02:30)
[2022-05-11 06:21] LABS: HEMATOCRIT. 26.4 % (36.0-48.0); MEAN CORPUSCULAR HEMOGLOBIN 27.1 pg (28.0-32.0); MEAN CORPUSCULAR VOLUME 88.7 fL (81.0-99.0); MEAN PLATELET VOLUME 9.7 fl (7.4-10.4); PLATELET 199 x1000/uL (130-400); RED BLOOD CELL COUNT 2.97 mill/uL (4.2-5.4)
[2022-05-11 06:40] LABS: CHLORIDE 103 mEq/L (98-107)
[2022-05-11] MEDS: METHYLPREDNISOLONE SOD SUCC 40 MG/ML VIAL IV SCH ×3 (07:09→21:17)
[2022-05-11 08:09] LABS: BG BASE EXCESS 1.8 mmol/L (-2.0-2.0); BG CARBOXYHEMOGLOBIN 0.6 % (0.5-1.5); BG DEOXYHEMOGLOBIN 15.8 % (0.0-5.0); BG FRACTION INSPIRED OXYGEN 100; BG METHEMOGLOBIN 0.3 % (0.0-1.5); BG OXYGEN SATURATION 84.1 % (92.0-98.5); BG OXYHEMOGLOBIN 83.3 % (94.0-97.0); BG PCO2 52.2 mmHg (35.0-45.0); BG PH 7.347 (7.350-7.450); BG PO2 53.6 mmHg (75.0-100.0); BG SAMPLE SITE RIGHT BRACHIAL; BG TOTAL HEMOGLOBIN 8.8 g/dL (12.0-18.0); BG VENT MODE PRVC
[2022-05-11 09:53] LABS: NUCLEATED RED BLOOD CELLS 3 /100 WBC
[2022-05-11 09:54] LABS: PLATELET ESTIMATE NORMAL
[2022-05-11] MEDS: TACROLIMUS 1MG/PACKET GT SCH ×2 (09:58→16:29)
[2022-05-11] MEDS: ASPIRIN 81MG TABLET NG SCH (09:59)
[2022-05-11] MEDS: MEROPENEM 500 MG in SODIUM CHLORIDE 0.9% 50 ML IV SCH ×2 (09:59→21:05)
[2022-05-11] MEDS: FUROSEMIDE 40MG TABLET PO SCH (09:59)
[2022-05-11] MEDS: SULFAMETHOXAZOLE/TRIMETHOPRIM 200-40 MG/5ML 5ML ORAL SYR GT SCH ×2 (09:59→21:06)
[2022-05-11] MEDS: PANTOPRAZOLE SODIUM 40 MG/VIAL IV SCH (09:59)
[2022-05-11] MEDS: CYANOCOBALAMIN 1000MCG TABLET GT SCH (09:59)
[2022-05-11] MEDS: INSULIN GLARGINE 100 UNITS/ML SUBCUT SCH (10:00)
[2022-05-11] MEDS ORDERED: BISACODYL 10MG SUPP PR PRN (11:30)
[2022-05-11] MEDS ORDERED: IPRATROPIUM/ALBUTEROL 0.5-3(2.5)MG/3ML NEB HHN PRN (11:45)
[2022-05-11] MEDS: METOCLOPRAMIDE HCL 10MG/2ML VIAL IV SCH ×2 (12:32→18:10)
[2022-05-11] MEDS: POLYETHYLENE GLYCOL 3350 (17GM) 1 DOSE PACK PO SCH (12:32)
[2022-05-11] MEDS: IPRATROPIUM/ALBUTEROL 0.5-3(2.5)MG/3ML NEB HHN SCH ×3 (12:49→21:01)
[2022-05-11] MEDS: ACETYLCYSTEINE 100MG/ML 10% VIAL 4ML INH SCH (16:16)
[2022-05-11] MEDS: TRAZODONE HCL 50MG TABLET PO SCH (21:06)
[2022-05-12] VITALS (74 sets, daily range): BP systolic 97–145; BP diastolic 48–80
[2022-05-12] MEDS: METOCLOPRAMIDE HCL 10MG/2ML VIAL IV SCH ×4 (00:14→18:15)
[2022-05-12] MEDS: BLOOD SUGAR DIAGNOSTIC STRIP TEST SCH ×4 (00:23→18:17)
[2022-05-12] MEDS: INSULIN LISPRO 100 UNITS/ML SUBCUT SCH ×8 (00:28→18:17)
[2022-05-12] MEDS: IPRATROPIUM/ALBUTEROL 0.5-3(2.5)MG/3ML NEB HHN SCH ×6 (00:54→20:42)
[2022-05-12] MEDS: ACETYLCYSTEINE 100MG/ML 10% VIAL 4ML INH SCH ×2 (00:55→11:34)
[2022-05-12] MEDS: FENTANYL CITRATE/PF 2,500 MCG in SODIUM CHLORIDE 0.9% 200 ML IV PRN (05:09)
[2022-05-12] MEDS: MIDAZOLAM HCL 100 MG in SODIUM CHLORIDE 0.9% 80 ML IV PRN (05:28)
[2022-05-12 06:50] LABS: PHOSPHORUS 6.8 mg/dL (2.5-4.9)
[2022-05-12] MEDS: METHYLPREDNISOLONE SOD SUCC 40 MG/ML VIAL IV SCH ×3 (07:07→21:24)
[2022-05-12] MEDS: PANTOPRAZOLE SODIUM 40 MG/VIAL IV SCH (08:37)
[2022-05-12] MEDS: TACROLIMUS 1MG/PACKET GT SCH ×2 (08:37→17:10)
[2022-05-12] MEDS: ASPIRIN 81MG TABLET NG SCH (08:37)
[2022-05-12 08:38] LABS: BG BASE EXCESS 0.7 mmol/L (-2.0-2.0); BG CARBOXYHEMOGLOBIN 0.3 % (0.5-1.5); BG DEOXYHEMOGLOBIN 6.1 % (0.0-5.0); BG FRACTION INSPIRED OXYGEN 100; BG HCO3 ACT 27.1 mmol/L (22.0-26.0); BG METHEMOGLOBIN 1.4 % (0.0-1.5); BG OXYGEN SATURATION 93.8 % (92.0-98.5); BG OXYHEMOGLOBIN 92.2 % (94.0-97.0); BG PCO2 53.4 mmHg (35.0-45.0); BG PH 7.324 (7.350-7.450); BG PO2 78.6 mmHg (75.0-100.0); BG SAMPLE SITE RIGHT BRACHIAL; BG TOTAL HEMOGLOBIN 8.4 g/dL (12.0-18.0); BG VENT MODE VENT - PRVC
[2022-05-12] MEDS: FUROSEMIDE 40MG TABLET PO SCH (08:38)
[2022-05-12] MEDS: POLYETHYLENE GLYCOL 3350 (17GM) 1 DOSE PACK PO SCH (08:38)
[2022-05-12] MEDS: CALCIUM ACETATE 667MG CAPSULE PO SCH ×3 (08:38→18:15)
[2022-05-12] MEDS: CYANOCOBALAMIN 1000MCG TABLET GT SCH (08:38)
[2022-05-12] MEDS: MEROPENEM 500 MG in SODIUM CHLORIDE 0.9% 50 ML IV SCH ×2 (08:40→21:24)
[2022-05-12] MEDS: SULFAMETHOXAZOLE/TRIMETHOPRIM 200-40 MG/5ML 5ML ORAL SYR GT SCH ×2 (09:25→21:24)
[2022-05-12] MEDS: INSULIN GLARGINE 100 UNITS/ML SUBCUT SCH (10:00)
[2022-05-12 11:39] LABS: HEMATOCRIT. 28.5 % (36.0-48.0); HEMOGLOBIN. 8.7 g/dL (12.0-16.0); MEAN CORPUSCULAR HEMOGLOBIN 27.2 pg (28.0-32.0); MEAN CORPUSCULAR VOLUME 88.7 fL (81.0-99.0); MEAN PLATELET VOLUME 9.3 fl (7.4-10.4); PLATELET 159 x1000/uL (130-400); RED BLOOD CELL COUNT 3.21 mill/uL (4.2-5.4)
[2022-05-12 14:04] LABS: NUCLEATED RED BLOOD CELLS 4 /100 WBC; PLATELET ESTIMATE NORMAL
[2022-05-12] MEDS: DOCUSATE SODIUM 100MG CAPSULE PO SCH (17:10)
[2022-05-12] MEDS: TRAZODONE HCL 50MG TABLET PO SCH (21:24)
[2022-05-12] MEDS: ENOXAPARIN 40MG/0.4ML SYR SUBCUT SCH (21:27)
[2022-05-13] VITALS (52 sets, daily range): BP systolic 82–161; BP diastolic 38–90
[2022-05-13] MEDS: BLOOD SUGAR DIAGNOSTIC STRIP TEST SCH ×4 (00:03→17:57)
[2022-05-13] MEDS: METOCLOPRAMIDE HCL 10MG/2ML VIAL IV SCH ×4 (00:08→18:03)
[2022-05-13] MEDS: IPRATROPIUM/ALBUTEROL 0.5-3(2.5)MG/3ML NEB HHN SCH ×6 (00:46→20:06)
[2022-05-13] MEDS: ACETYLCYSTEINE 100MG/ML 10% VIAL 4ML INH SCH ×3 (00:47→15:25)
[2022-05-13] MEDS: METHYLPREDNISOLONE SOD SUCC 40 MG/ML VIAL IV SCH ×3 (06:19→21:22)
[2022-05-13] MEDS: INSULIN LISPRO 100 UNITS/ML SUBCUT SCH ×8 (06:21→18:04)
[2022-05-13 08:07] LABS: BG BASE EXCESS 1.7 mmol/L (-2.0-2.0); BG CARBOXYHEMOGLOBIN 0.3 % (0.5-1.5); BG DEOXYHEMOGLOBIN 11.8 % (0.0-5.0); BG FRACTION INSPIRED OXYGEN 60; BG HCO3 ACT 27.5 mmol/L (22.0-26.0); BG METHEMOGLOBIN 0.3 % (0.0-1.5); BG OXYGEN SATURATION 88.1 % (92.0-98.5); BG OXYHEMOGLOBIN 87.6 % (94.0-97.0); BG PCO2 49.5 mmHg (35.0-45.0); BG PH 7.363 (7.350-7.450); BG PO2 55.8 mmHg (75.0-100.0); BG SAMPLE SITE RIGHT RADIAL; BG TOTAL HEMOGLOBIN 8.8 g/dL (12.0-18.0); BG VENT MODE VENT PRVC
[2022-05-13 09:00] LABS: HEMATOCRIT. 26.1 % (36.0-48.0); MEAN CORPUSCULAR HEMOGLOBIN 27.2 pg (28.0-32.0); MEAN CORPUSCULAR VOLUME 88.7 fL (81.0-99.0); MEAN PLATELET VOLUME 9.5 fl (7.4-10.4); PLATELET 146 x1000/uL (130-400); RED BLOOD CELL COUNT 2.94 mill/uL (4.2-5.4); RED CELL DISTRIBUTION WIDTH 19.1 % (11.6-14.6)
[2022-05-13] MEDS: ASPIRIN 81MG TABLET NG SCH (09:00)
[2022-05-13] MEDS: FUROSEMIDE 40MG TABLET PO SCH (09:00)
[2022-05-13] MEDS: TACROLIMUS 1MG/PACKET GT SCH (09:00)
[2022-05-13] MEDS: POLYETHYLENE GLYCOL 3350 (17GM) 1 DOSE PACK PO SCH (09:00)
[2022-05-13] MEDS: CALCIUM ACETATE 667MG CAPSULE PO SCH ×3 (09:00→18:03)
[2022-05-13] MEDS: PANTOPRAZOLE SODIUM 40 MG/VIAL IV SCH (09:00)
[2022-05-13] MEDS: DOCUSATE SODIUM 100MG CAPSULE PO SCH ×2 (09:00→16:49)
[2022-05-13] MEDS: CYANOCOBALAMIN 1000MCG TABLET GT SCH (09:00)
[2022-05-13] MEDS ORDERED: FUROSEMIDE 100MG/10ML VIAL IVP NR (09:30)
[2022-05-13] MEDS: INSULIN GLARGINE 100 UNITS/ML SUBCUT SCH (10:00)
[2022-05-13 10:05] LABS: NUCLEATED RED BLOOD CELLS 4 /100 WBC; PLATELET ESTIMATE NORMAL
[2022-05-13] MEDS: MIDAZOLAM HCL 100 MG in SODIUM CHLORIDE 0.9% 80 ML IV PRN (10:14)
[2022-05-13] MEDS: TRAZODONE HCL 50MG TABLET PO SCH (21:22)
[2022-05-13] MEDS: FENTANYL CITRATE/PF 2,500 MCG in SODIUM CHLORIDE 0.9% 200 ML IV PRN (22:53)
[2022-05-14] VITALS (70 sets, daily range): BP systolic 98–186; BP diastolic 53–105
[2022-05-14] MEDS: IPRATROPIUM/ALBUTEROL 0.5-3(2.5)MG/3ML NEB HHN SCH ×6 (00:20→20:59)
[2022-05-14] MEDS: BLOOD SUGAR DIAGNOSTIC STRIP TEST SCH ×5 (00:26→23:34)
[2022-05-14] MEDS: METOCLOPRAMIDE HCL 10MG/2ML VIAL IV SCH ×5 (00:27→23:38)
[2022-05-14] MEDS: METHYLPREDNISOLONE SOD SUCC 40 MG/ML VIAL IV SCH ×3 (05:31→23:38)
[2022-05-14] MEDS: MIDAZOLAM HCL 100 MG in SODIUM CHLORIDE 0.9% 80 ML IV PRN (05:34)
[2022-05-14 05:46] LABS: HEMATOCRIT. 26.9 % (36.0-48.0); HEMOGLOBIN. 8.3 g/dL (12.0-16.0); MEAN CORPUSCULAR HEMOGLOBIN 27.1 pg (28.0-32.0); MEAN CORPUSCULAR VOLUME 88.1 fL (81.0-99.0); MEAN PLATELET VOLUME 9.8 fl (7.4-10.4); PLATELET 140 x1000/uL (130-400); RED BLOOD CELL COUNT 3.06 mill/uL (4.2-5.4)
[2022-05-14] MEDS: INSULIN LISPRO 100 UNITS/ML SUBCUT SCH ×8 (06:19→18:03)
[2022-05-14 07:42] LABS: BG BASE EXCESS -3.1 mmol/L (-2.0-2.0); BG CARBOXYHEMOGLOBIN 0.6 % (0.5-1.5); BG DEOXYHEMOGLOBIN 9.4 % (0.0-5.0); BG FRACTION INSPIRED OXYGEN 60; BG HCO3 ACT 22.4 mmol/L (22.0-26.0); BG METHEMOGLOBIN 0.4 % (0.0-1.5); BG OXYGEN SATURATION 90.5 % (92.0-98.5); BG OXYHEMOGLOBIN 89.6 % (94.0-97.0); BG PH 7.344 (7.350-7.450); BG SAMPLE SITE RIGHT RADIAL; BG TOTAL HEMOGLOBIN 9.2 g/dL (12.0-18.0); BG VENT MODE VENT PRVC
[2022-05-14 08:13] LABS: PLATELET ESTIMATE NORMAL
[2022-05-14] MEDS: ASPIRIN 81MG TABLET NG SCH (09:04)
[2022-05-14] MEDS: DOCUSATE SODIUM 100MG CAPSULE PO SCH ×2 (09:04→17:00)
[2022-05-14] MEDS: POLYETHYLENE GLYCOL 3350 (17GM) 1 DOSE PACK PO SCH (09:04)
[2022-05-14] MEDS: FUROSEMIDE 40MG TABLET PO SCH (09:04)
[2022-05-14] MEDS: CALCIUM ACETATE 667MG CAPSULE PO SCH ×3 (09:04→18:00)
[2022-05-14] MEDS: CYANOCOBALAMIN 1000MCG TABLET GT SCH (09:05)
[2022-05-14] MEDS: INSULIN GLARGINE 100 UNITS/ML SUBCUT SCH (09:07)
[2022-05-14] MEDS: ACETYLCYSTEINE 100MG/ML 10% VIAL 4ML INH SCH ×2 (09:09→16:41)
[2022-05-14] MEDS: DILTIAZEM HCL 30MG TABLET PO SCH ×2 (18:00→23:39)
[2022-05-14] MEDS: TRAZODONE HCL 50MG TABLET PO SCH (20:13)
[2022-05-14] MEDS: ENOXAPARIN 40MG/0.4ML SYR SUBCUT SCH (20:13)
[2022-05-15] VITALS (90 sets, daily range): BP systolic 95–174; BP diastolic 56–90
[2022-05-15] MEDS: IPRATROPIUM/ALBUTEROL 0.5-3(2.5)MG/3ML NEB HHN SCH ×6 (00:58→20:59)
[2022-05-15] MEDS: ACETYLCYSTEINE 100MG/ML 10% VIAL 4ML INH SCH ×4 (00:58→22:00)
[2022-05-15] MEDS ORDERED: MIDAZOLAM 100MG/100ML PMX 100 ML IV PRN (02:00)
[2022-05-15] MEDS ORDERED: FENTANYL 2500MCG/250ML PMX 250 ML IV ONE (02:00)
[2022-05-15] MEDS: MIDAZOLAM HCL 100 MG in SODIUM CHLORIDE 0.9% 100 ML IV PRN ×2 (02:20→21:31)
[2022-05-15] MEDS: METHYLPREDNISOLONE SOD SUCC 40 MG/ML VIAL IV SCH ×3 (05:10→23:13)
[2022-05-15] MEDS: METOCLOPRAMIDE HCL 10MG/2ML VIAL IV SCH ×3 (05:10→17:45)
[2022-05-15] MEDS: DILTIAZEM HCL 30MG TABLET PO SCH ×3 (05:11→17:46)
[2022-05-15] MEDS: INSULIN LISPRO 100 UNITS/ML SUBCUT SCH ×3 (05:16→17:47)
[2022-05-15] MEDS: BLOOD SUGAR DIAGNOSTIC STRIP TEST SCH ×3 (05:27→17:30)
[2022-05-15 05:41] LABS: HEMATOCRIT. 25.4 % (36.0-48.0); HEMOGLOBIN. 7.9 g/dL (12.0-16.0); MEAN CORPUSCULAR HEMOGLOBIN 27.6 pg (28.0-32.0); MEAN CORPUSCULAR VOLUME 88.8 fL (81.0-99.0); MEAN PLATELET VOLUME 10.2 fl (7.4-10.4); PLATELET 135 x1000/uL (130-400); RED BLOOD CELL COUNT 2.86 mill/uL (4.2-5.4); RED CELL DISTRIBUTION WIDTH 19.7 % (11.6-14.6)
[2022-05-15 06:10] LABS: PHOSPHORUS 4.2 mg/dL (2.5-4.9)
[2022-05-15 07:22] LABS: NUCLEATED RED BLOOD CELLS 2 /100 WBC; PLATELET ESTIMATE NORMAL
[2022-05-15 08:36] LABS: BG BASE EXCESS 7.8 mmol/L (-2.0-2.0); BG CARBOXYHEMOGLOBIN 0.5 % (0.5-1.5); BG DEOXYHEMOGLOBIN 13.1 % (0.0-5.0); BG FRACTION INSPIRED OXYGEN 60; BG HCO3 ACT 33.3 mmol/L (22.0-26.0); BG METHEMOGLOBIN 1.1 % (0.0-1.5); BG OXYGEN SATURATION 86.7 % (92.0-98.5); BG OXYHEMOGLOBIN 85.3 % (94.0-97.0); BG PCO2 52.4 mmHg (35.0-45.0); BG PH 7.421 (7.350-7.450); BG PO2 54.2 mmHg (75.0-100.0); BG SAMPLE SITE RIGHT RADIAL; BG TOTAL HEMOGLOBIN 8.6 g/dL (12.0-18.0); BG VENT MODE PRVC
[2022-05-15] MEDS: ASPIRIN 81MG TABLET NG SCH (09:39)
[2022-05-15] MEDS: DOCUSATE SODIUM SUGAR FREE 100MG/10ML UDC NG SCH ×2 (09:39→17:45)
[2022-05-15] MEDS: FUROSEMIDE 40MG TABLET PO SCH (09:39)
[2022-05-15] MEDS: CYANOCOBALAMIN 1000MCG TABLET GT SCH (09:40)
[2022-05-15] MEDS: POLYETHYLENE GLYCOL 3350 (17GM) 1 DOSE PACK PO SCH (09:40)
[2022-05-15] MEDS: CALCIUM ACETATE 667MG CAPSULE PO SCH ×3 (09:41→17:48)
[2022-05-15] MEDS: INSULIN GLARGINE 100 UNITS/ML SUBCUT SCH (10:46)
[2022-05-15] MEDS ORDERED: INSULIN GLARGINE 100 UNITS/ML SUBCUT SCH (12:30)
[2022-05-15] MEDS: FENTANYL CITRATE 2,500 MCG in SODIUM CHLORIDE 0.9% 200 ML IV PRN (15:18)
[2022-05-15] MEDS: TRAZODONE HCL 50MG TABLET PO SCH (21:31)
[2022-05-16] VITALS (91 sets, daily range): BP systolic 118–187; BP diastolic 64–96
[2022-05-16] MEDS: METOCLOPRAMIDE HCL 10MG/2ML VIAL IV SCH ×4 (01:43→17:20)
[2022-05-16] MEDS: DILTIAZEM HCL 30MG TABLET PO SCH ×4 (01:44→17:20)
[2022-05-16] MEDS: IPRATROPIUM/ALBUTEROL 0.5-3(2.5)MG/3ML NEB HHN SCH ×5 (04:00→19:38)
[2022-05-16 06:04] LABS: HEMATOCRIT. 26.4 % (36.0-48.0); HEMOGLOBIN. 8.3 g/dL (12.0-16.0); MEAN CORPUSCULAR HEMOGLOBIN 27.7 pg (28.0-32.0); MEAN CORPUSCULAR VOLUME 87.8 fL (81.0-99.0); MEAN PLATELET VOLUME 9.4 fl (7.4-10.4); PLATELET 104 x1000/uL (130-400); RED CELL DISTRIBUTION WIDTH 19.3 % (11.6-14.6)
[2022-05-16] MEDS: METHYLPREDNISOLONE SOD SUCC 40 MG/ML VIAL IV SCH ×3 (06:30→21:04)
[2022-05-16] MEDS: BLOOD SUGAR DIAGNOSTIC STRIP TEST SCH ×4 (06:32→17:20)
[2022-05-16] MEDS: INSULIN LISPRO 100 UNITS/ML SUBCUT SCH ×4 (06:32→18:00)
[2022-05-16 08:13] LABS: BG BASE EXCESS 2.7 mmol/L (-2.0-2.0); BG CARBOXYHEMOGLOBIN 0.5 % (0.5-1.5); BG DEOXYHEMOGLOBIN 11.5 % (0.0-5.0); BG FRACTION INSPIRED OXYGEN 60; BG HCO3 ACT 27.6 mmol/L (22.0-26.0); BG METHEMOGLOBIN 0.4 % (0.0-1.5); BG OXYGEN SATURATION 88.4 % (92.0-98.5); BG OXYHEMOGLOBIN 87.6 % (94.0-97.0); BG PCO2 44.4 mmHg (35.0-45.0); BG PH 7.412 (7.350-7.450); BG PO2 57.8 mmHg (75.0-100.0); BG SAMPLE SITE LEFT RADIAL; BG TOTAL HEMOGLOBIN 9.1 g/dL (12.0-18.0); BG VENT MODE PRVC
[2022-05-16] MEDS: ACETYLCYSTEINE 100MG/ML 10% VIAL 4ML INH SCH ×2 (08:24→14:00)
[2022-05-16 08:55] LABS: NUCLEATED RED BLOOD CELLS 1 /100 WBC; PLATELET ESTIMATE DECREASED
[2022-05-16] MEDS: POLYETHYLENE GLYCOL 3350 (17GM) 1 DOSE PACK PO SCH (09:41)
[2022-05-16] MEDS: FUROSEMIDE 40MG TABLET PO SCH (09:41)
[2022-05-16] MEDS: CYANOCOBALAMIN 1000MCG TABLET GT SCH (09:42)
[2022-05-16] MEDS: ASPIRIN 81MG TABLET NG SCH (09:42)
[2022-05-16] MEDS: CALCIUM ACETATE 667MG CAPSULE PO SCH ×3 (09:43→17:20)
[2022-05-16] MEDS: DOCUSATE SODIUM SUGAR FREE 100MG/10ML UDC NG SCH ×2 (09:44→17:19)
[2022-05-16] MEDS ORDERED: INSULIN GLARGINE 100 UNITS/ML SUBCUT SCH (10:00)
[2022-05-16] MEDS: MIDAZOLAM HCL 100 MG in SODIUM CHLORIDE 0.9% 100 ML IV PRN (18:48)
[2022-05-16] MEDS: TRAZODONE HCL 50MG TABLET PO SCH (21:00)
[2022-05-16] MEDS: ENOXAPARIN 40MG/0.4ML SYR SUBCUT SCH (21:03)
[2022-05-17] VITALS (61 sets, daily range): BP systolic 113–196; BP diastolic 58–102
[2022-05-17] MEDS: IPRATROPIUM/ALBUTEROL 0.5-3(2.5)MG/3ML NEB HHN SCH ×6 (00:18→20:01)
[2022-05-17] MEDS: DILTIAZEM HCL 30MG TABLET PO SCH ×4 (00:29→18:07)
[2022-05-17] MEDS: METOCLOPRAMIDE HCL 10MG/2ML VIAL IV SCH ×4 (00:30→18:06)
[2022-05-17] MEDS: BLOOD SUGAR DIAGNOSTIC STRIP TEST SCH ×4 (00:37→18:07)
[2022-05-17] MEDS: INSULIN LISPRO 100 UNITS/ML SUBCUT SCH ×4 (00:52→18:00)
[2022-05-17 05:35] LABS: HEMATOCRIT. 30.9 % (36.0-48.0); HEMOGLOBIN. 9.5 g/dL (12.0-16.0); MEAN CORPUSCULAR HEMOGLOBIN 27.1 pg (28.0-32.0); MEAN CORPUSCULAR VOLUME 87.9 fL (81.0-99.0); MEAN PLATELET VOLUME 10.4 fl (7.4-10.4); PLATELET 135 x1000/uL (130-400); RED BLOOD CELL COUNT 3.51 mill/uL (4.2-5.4); RED CELL DISTRIBUTION WIDTH 20.1 % (11.6-14.6)
[2022-05-17] MEDS: METHYLPREDNISOLONE SOD SUCC 40 MG/ML VIAL IV SCH ×3 (05:48→21:46)
[2022-05-17 07:58] LABS: NUCLEATED RED BLOOD CELLS 1 /100 WBC; PLATELET ESTIMATE NORMAL
[2022-05-17 08:33] LABS: BG BASE EXCESS 6.4 mmol/L (-2.0-2.0); BG CARBOXYHEMOGLOBIN 0.3 % (0.5-1.5); BG DEOXYHEMOGLOBIN 10.9 % (0.0-5.0); BG FRACTION INSPIRED OXYGEN 70; BG HCO3 ACT 31.7 mmol/L (22.0-26.0); BG METHEMOGLOBIN 1.5 % (0.0-1.5); BG OXYGEN SATURATION 88.9 % (92.0-98.5); BG OXYHEMOGLOBIN 87.3 % (94.0-97.0); BG PCO2 49.9 mmHg (35.0-45.0); BG PH 7.421 (7.350-7.450); BG PO2 58.4 mmHg (75.0-100.0); BG SAMPLE SITE RIGHT RADIAL; BG TOTAL HEMOGLOBIN 8.8 g/dL (12.0-18.0); BG VENT MODE PRVC
[2022-05-17] MEDS: ASPIRIN 81MG TABLET NG SCH (09:00)
[2022-05-17] MEDS: POLYETHYLENE GLYCOL 3350 (17GM) 1 DOSE PACK PO SCH (10:01)
[2022-05-17] MEDS: FUROSEMIDE 40MG TABLET PO SCH (10:01)
[2022-05-17] MEDS: CALCIUM ACETATE 667MG CAPSULE PO SCH ×3 (10:01→18:07)
[2022-05-17] MEDS: CYANOCOBALAMIN 1000MCG TABLET GT SCH (10:01)
[2022-05-17] MEDS: INSULIN GLARGINE 100 UNITS/ML SUBCUT SCH (10:01)
[2022-05-17] MEDS: DOCUSATE SODIUM SUGAR FREE 100MG/10ML UDC NG SCH ×2 (10:01→17:27)
[2022-05-17] MEDS: MIDAZOLAM 100MG/100ML PREMIX IV PRN (13:20)
[2022-05-17] MEDS: FENTANYL CITRATE 2,500 MCG in SODIUM CHLORIDE 0.9% 200 ML IV PRN (13:22)
[2022-05-17] MEDS: TRAZODONE HCL 50MG TABLET PO SCH (21:00)
[2022-05-17] MEDS: ENOXAPARIN 40MG/0.4ML SYR SUBCUT SCH (21:46)
[2022-05-18] VITALS (55 sets, daily range): BP systolic 103–226; BP diastolic 56–116
[2022-05-18] MEDS: IPRATROPIUM/ALBUTEROL 0.5-3(2.5)MG/3ML NEB HHN SCH ×6 (00:05→20:20)
[2022-05-18] MEDS: METOCLOPRAMIDE HCL 10MG/2ML VIAL IV SCH ×4 (00:27→18:33)
[2022-05-18] MEDS: DILTIAZEM HCL 30MG TABLET PO SCH ×4 (00:27→18:00)
[2022-05-18] MEDS: BLOOD SUGAR DIAGNOSTIC STRIP TEST SCH ×4 (00:27→18:30)
[2022-05-18] MEDS: METHYLPREDNISOLONE SOD SUCC 40 MG/ML VIAL IV SCH ×3 (05:38→21:21)
[2022-05-18] MEDS: INSULIN LISPRO 100 UNITS/ML SUBCUT SCH ×4 (05:39→18:00)
[2022-05-18] MEDS: MIDAZOLAM 100MG/100ML PREMIX IV PRN (05:55)
[2022-05-18 06:10] LABS: HEMATOCRIT. 28.3 % (36.0-48.0); HEMOGLOBIN. 8.8 g/dL (12.0-16.0); MEAN CORPUSCULAR HEMOGLOBIN 27.4 pg (28.0-32.0); MEAN CORPUSCULAR VOLUME 88.2 fL (81.0-99.0); MEAN PLATELET VOLUME 11.4 fl (7.4-10.4); PLATELET 105 x1000/uL (130-400); RED BLOOD CELL COUNT 3.21 mill/uL (4.2-5.4); RED CELL DISTRIBUTION WIDTH 19.9 % (11.6-14.6)
[2022-05-18 06:55] LABS: PHOSPHORUS 4.5 mg/dL (2.5-4.9)
[2022-05-18 07:17] LABS: BG BASE EXCESS 6.7 mmol/L (-2.0-2.0); BG CARBOXYHEMOGLOBIN 0.4 % (0.5-1.5); BG DEOXYHEMOGLOBIN 5.1 % (0.0-5.0); BG FRACTION INSPIRED OXYGEN 90; BG METHEMOGLOBIN 0.2 % (0.0-1.5); BG OXYGEN SATURATION 94.9 % (92.0-98.5); BG OXYHEMOGLOBIN 94.3 % (94.0-97.0); BG PH 7.424 (7.350-7.450); BG PO2 79.5 mmHg (75.0-100.0); BG SAMPLE SITE RIGHT RADIAL; BG TOTAL HEMOGLOBIN 8.7 g/dL (12.0-18.0); BG VENT MODE vent prvc
[2022-05-18 07:54] LABS: PLATELET ESTIMATE SLIGHTLY DECREASED
[2022-05-18] MEDS ORDERED: DEXT 5%/0.9% NACL 1,000 ML IV SCH (08:00)
[2022-05-18] MEDS: FUROSEMIDE 40MG TABLET PO SCH (08:34)
[2022-05-18] MEDS: DOCUSATE SODIUM SUGAR FREE 100MG/10ML UDC NG SCH ×2 (08:34→17:00)
[2022-05-18] MEDS: POLYETHYLENE GLYCOL 3350 (17GM) 1 DOSE PACK PO SCH (08:34)
[2022-05-18] MEDS: CALCIUM ACETATE 667MG CAPSULE PO SCH ×3 (08:34→18:17)
[2022-05-18] MEDS: CYANOCOBALAMIN 1000MCG TABLET GT SCH (08:34)
[2022-05-18] MEDS: ASPIRIN 81MG TABLET NG SCH (08:35)
[2022-05-18] MEDS: INSULIN GLARGINE 100 UNITS/ML SUBCUT SCH (10:00)
[2022-05-18] MEDS ORDERED: FENTANYL CITRATE/PF 50MCG/ML 2ML VIAL ONE (10:20)
[2022-05-18] MEDS ORDERED: ROCURONIUM BROMIDE 10MG/ML VIAL 5ML IV ONE ×2 (10:20→11:08)
[2022-05-18] MEDS ORDERED: MIDAZOLAM HCL 2 MG/2 ML VIAL ONE (10:21)
[2022-05-18] MEDS ORDERED: DIAZEPAM 5 MG/ML 2ML CPJ IV PRN (12:30)
[2022-05-18] MEDS ORDERED: MORPHINE SULFATE 2 MG/ML CPJ (NOT FOR IM USE) IV PRN (12:30)
[2022-05-18] MEDS ORDERED: FENTANYL CITRATE/PF 2,500 MCG in SODIUM CHLORIDE 0.9% 200 ML IV PRN (12:45)
[2022-05-18] MEDS ORDERED: MIDAZOLAM 100MG/100ML PMX 100 ML IV PRN (12:45)
[2022-05-18 17:08] LABS: BG BASE EXCESS 0.8 mmol/L (-2.0-2.0); BG CARBOXYHEMOGLOBIN 0.6 % (0.5-1.5); BG DEOXYHEMOGLOBIN 23.1 % (0.0-5.0); BG HCO3 ACT 26.6 mmol/L (22.0-26.0); BG METHEMOGLOBIN 0.2 % (0.0-1.5); BG OXYGEN SATURATION 76.7 % (92.0-98.5); BG OXYHEMOGLOBIN 76.1 % (94.0-97.0); BG PCO2 48.5 mmHg (35.0-45.0); BG PH 7.357 (7.350-7.450); BG PO2 43.9 mmHg (75.0-100.0); BG SAMPLE SITE RIGHT RADIAL; BG TOTAL HEMOGLOBIN 9.2 g/dL (12.0-18.0); BG VENT MODE VENT- PRVC
[2022-05-18] MEDS: ENOXAPARIN 40MG/0.4ML SYR SUBCUT SCH (21:20)
[2022-05-18] MEDS: TRAZODONE HCL 50MG TABLET PO SCH (21:21)
[2022-05-19] VITALS (76 sets, daily range): BP systolic 103–172; BP diastolic 56–100
[2022-05-19] MEDS: IPRATROPIUM/ALBUTEROL 0.5-3(2.5)MG/3ML NEB HHN SCH ×6 (00:13→20:17)
[2022-05-19] MEDS: METOCLOPRAMIDE HCL 10MG/2ML VIAL IV SCH ×4 (00:25→18:19)
[2022-05-19] MEDS: DILTIAZEM HCL 30MG TABLET PO SCH ×4 (00:26→18:20)
[2022-05-19] MEDS: BLOOD SUGAR DIAGNOSTIC STRIP TEST SCH ×4 (00:26→18:09)
[2022-05-19 05:32] LABS: HEMATOCRIT. 26.1 % (36.0-48.0); HEMOGLOBIN. 7.9 g/dL (12.0-16.0); MEAN CORPUSCULAR HEMOGLOBIN 27.3 pg (28.0-32.0); MEAN CORPUSCULAR VOLUME 90.6 fL (81.0-99.0); MEAN PLATELET VOLUME 10.7 fl (7.4-10.4); PLATELET 92 x1000/uL (130-400); RED BLOOD CELL COUNT 2.88 mill/uL (4.2-5.4); RED CELL DISTRIBUTION WIDTH 20.5 % (11.6-14.6)
[2022-05-19] MEDS: METHYLPREDNISOLONE SOD SUCC 40 MG/ML VIAL IV SCH ×3 (06:14→21:21)
[2022-05-19] MEDS: INSULIN LISPRO 100 UNITS/ML SUBCUT SCH ×4 (06:24→18:19)
[2022-05-19 08:32] LABS: BG BASE EXCESS -1.1 mmol/L (-2.0-2.0); BG CARBOXYHEMOGLOBIN 0.7 % (0.5-1.5); BG DEOXYHEMOGLOBIN 7.4 % (0.0-5.0); BG FRACTION INSPIRED OXYGEN 100; BG HCO3 ACT 24.8 mmol/L (22.0-26.0); BG METHEMOGLOBIN 0.3 % (0.0-1.5); BG OXYGEN SATURATION 92.5 % (92.0-98.5); BG OXYHEMOGLOBIN 91.6 % (94.0-97.0); BG PCO2 47.8 mmHg (35.0-45.0); BG PH 7.333 (7.350-7.450); BG PO2 68.7 mmHg (75.0-100.0); BG SAMPLE SITE RIGHT RADIAL; BG VENT MODE VENT - PRVC
[2022-05-19] MEDS: CALCIUM ACETATE 667MG CAPSULE PO SCH ×3 (09:27→18:19)
[2022-05-19] MEDS: CYANOCOBALAMIN 1000MCG TABLET GT SCH (09:27)
[2022-05-19] MEDS: DOCUSATE SODIUM SUGAR FREE 100MG/10ML UDC NG SCH ×2 (09:27→18:14)
[2022-05-19] MEDS: ASPIRIN 81MG TABLET NG SCH (09:27)
[2022-05-19] MEDS: POLYETHYLENE GLYCOL 3350 (17GM) 1 DOSE PACK PO SCH (09:27)
[2022-05-19] MEDS: FUROSEMIDE 40MG TABLET PO SCH (09:27)
[2022-05-19] MEDS: INSULIN GLARGINE 100 UNITS/ML SUBCUT SCH (10:26)
[2022-05-19] MEDS ORDERED: MIDAZOLAM HCL 2 MG/2 ML VIAL IV PRN (10:45)
[2022-05-19] MEDS ORDERED: NALOXONE HCL 0.4MG/ML VIAL IV PRN (10:45)
[2022-05-19 11:39] LABS: PLATELET ESTIMATE SLIGHTLY DECREASED
[2022-05-19] MEDS: MORPHINE SULFATE 2 MG/ML CPJ (NOT FOR IM USE) IV PRN (14:45)
[2022-05-19] MEDS ORDERED: MEROPENEM 1,000 MG in SODIUM CHLORIDE 0.9% 100 ML IV SCH (18:00)
[2022-05-19] MEDS ORDERED: ATOVAQUONE 750MG/5ML PACKET GT SCH (18:20)
[2022-05-19] MEDS ORDERED: ATOVAQUONE 750MG/5ML PACKET PO SCH (18:20)
[2022-05-19] MEDS ORDERED: ATOVAQUONE 750 MG/5 ML UDC GT SCH (18:30)
[2022-05-19] MEDS: TRAZODONE HCL 50MG TABLET PO SCH (21:21)
[2022-05-20] VITALS (27 sets, daily range): BP systolic 88–219; BP diastolic 25–120
[2022-05-20] MEDS: IPRATROPIUM/ALBUTEROL 0.5-3(2.5)MG/3ML NEB HHN SCH ×3 (00:08→08:08)
[2022-05-20] MEDS: BLOOD SUGAR DIAGNOSTIC STRIP TEST SCH ×2 (00:12→06:00)
[2022-05-20] MEDS: METOCLOPRAMIDE HCL 10MG/2ML VIAL IV SCH ×2 (00:29→05:46)
[2022-05-20] MEDS: DILTIAZEM HCL 30MG TABLET PO SCH ×2 (00:29→05:47)
[2022-05-20] MEDS: INSULIN LISPRO 100 UNITS/ML SUBCUT SCH ×2 (00:31→05:54)
[2022-05-20] MEDS: MORPHINE SULFATE 2 MG/ML CPJ (NOT FOR IM USE) IV PRN (05:47)
[2022-05-20] MEDS: METHYLPREDNISOLONE SOD SUCC 40 MG/ML VIAL IV SCH (06:00)
[2022-05-20 06:11] LABS: HEMATOCRIT. 26.8 % (36.0-48.0); HEMOGLOBIN. 8.1 g/dL (12.0-16.0); MEAN CORPUSCULAR HEMOGLOBIN 27.2 pg (28.0-32.0); MEAN CORPUSCULAR VOLUME 89.5 fL (81.0-99.0); MEAN PLATELET VOLUME 10.5 fl (7.4-10.4); PLATELET 98 x1000/uL (130-400); RED BLOOD CELL COUNT 2.99 mill/uL (4.2-5.4); RED CELL DISTRIBUTION WIDTH 20.5 % (11.6-14.6)
[2022-05-20 06:27] LABS: PHOSPHORUS 3.3 mg/dL (2.5-4.9)
[2022-05-20 08:08] LABS: BG BASE EXCESS 2.3 mmol/L (-2.0-2.0); BG CARBOXYHEMOGLOBIN 0.4 % (0.5-1.5); BG DEOXYHEMOGLOBIN 14.4 % (0.0-5.0); BG FRACTION INSPIRED OXYGEN 100; BG HCO3 ACT 27.2 mmol/L (22.0-26.0); BG METHEMOGLOBIN 0.1 % (0.0-1.5); BG OXYGEN SATURATION 85.5 % (92.0-98.5); BG OXYHEMOGLOBIN 85.1 % (94.0-97.0); BG PCO2 43.9 mmHg (35.0-45.0); BG PO2 51.2 mmHg (75.0-100.0); BG SAMPLE SITE LEFT RADIAL; BG TOTAL HEMOGLOBIN 8.6 g/dL (12.0-18.0); BG TOTAL RESPIRATORY RATE 27 b/min
[2022-05-20 08:19] LABS: BG VENT MODE PRVC
[2022-05-20 08:38] LABS: PLATELET ESTIMATE DECREASED
[2022-05-20] MEDS ORDERED: CALCIUM CHLORIDE 1GM/10ML SYR IV ONE (09:17)
[2022-05-20] MEDS ORDERED: EPINEPHRINE 0.1MG/ML (1:10,000) 10ML SYR ONE (09:17)
[2022-05-20] MEDS ORDERED: SODIUM BICARBONATE 8.4% 1 MEQ/ML 50ML SYR IV ONE (09:17)
[2022-05-20] MEDS ORDERED: DEXTROSE 50% WATER 50ML SYRINGE IV ONE (09:17)
== END 2022-05-20 08:50 | DRG 5 ==
LOC: ER 19:35 → 5EST 22:39 → ENRESERV 04-11 01:56 → MICUNO 04-13 09:03 → CVICU 04-21 15:40 → 5EST 04-23 05:40 → CVICU 05-07 15:18
PROVIDERS: ADMIT Internal Medicine; ATTEND Internal Medicine
PROC: 5A09457 Assistance with Respiratory Ventilation, 24-96 Consecutive Hours, Continuous Positive Airway Pressure (ICD-10-PCS; 2022-04-10)
PROC: 5A1955Z Respiratory Ventilation, Greater than 96 Consecutive Hours (ICD-10-PCS; 2022-04-13)
PROC: 0BH17EZ Insertion of Endotracheal Airway into Trachea, Via Natural or Artificial Opening (ICD-10-PCS; 2022-04-13)
PROC: 02HV33Z Insertion of Infusion Device into Superior Vena Cava, Percutaneous Approach (ICD-10-PCS; 2022-04-14)
PROC: B548ZZA Ultrasonography of Superior Vena Cava, Guidance (ICD-10-PCS; 2022-04-14)
PROC: 02HV33Z Insertion of Infusion Device into Superior Vena Cava, Percutaneous Approach (ICD-10-PCS; 2022-04-16)
PROC: B548ZZA Ultrasonography of Superior Vena Cava, Guidance (ICD-10-PCS; 2022-04-16)
PROC: 5A1D70Z Performance of Urinary Filtration, Intermittent, Less than 6 Hours Per Day (ICD-10-PCS; 2022-04-16)
PROC: 5A1D70Z Performance of Urinary Filtration, Intermittent, Less than 6 Hours Per Day (ICD-10-PCS; 2022-04-18)
PROC: 5A1D70Z Performance of Urinary Filtration, Intermittent, Less than 6 Hours Per Day (ICD-10-PCS; 2022-04-20)
PROC: 5A09457 Assistance with Respiratory Ventilation, 24-96 Consecutive Hours, Continuous Positive Airway Pressure (ICD-10-PCS; 2022-04-23)
PROC: 5A1D70Z Performance of Urinary Filtration, Intermittent, Less than 6 Hours Per Day (ICD-10-PCS; 2022-04-24)
PROC: 5A1D70Z Performance of Urinary Filtration, Intermittent, Less than 6 Hours Per Day (ICD-10-PCS; 2022-04-26)
PROC: 5A09357 Assistance with Respiratory Ventilation, Less than 24 Consecutive Hours, Continuous Positive Airway Pressure (ICD-10-PCS; 2022-04-27)
PROC: 5A1D70Z Performance of Urinary Filtration, Intermittent, Less than 6 Hours Per Day (ICD-10-PCS; 2022-04-28)
PROC: 5A0945A Assistance with Respiratory Ventilation, 24-96 Consecutive Hours, High Flow/Velocity Cannula (ICD-10-PCS; 2022-04-28)
PROC: 5A1D70Z Performance of Urinary Filtration, Intermittent, Less than 6 Hours Per Day (ICD-10-PCS; 2022-04-29)
PROC: 5A09357 Assistance with Respiratory Ventilation, Less than 24 Consecutive Hours, Continuous Positive Airway Pressure (ICD-10-PCS; 2022-04-29)
PROC: 5A09357 Assistance with Respiratory Ventilation, Less than 24 Consecutive Hours, Continuous Positive Airway Pressure (ICD-10-PCS; 2022-04-30)
PROC: 5A0935A Assistance with Respiratory Ventilation, Less than 24 Consecutive Hours, High Flow/Velocity Cannula (ICD-10-PCS; 2022-04-30)
PROC: 5A1D70Z Performance of Urinary Filtration, Intermittent, Less than 6 Hours Per Day (ICD-10-PCS; 2022-05-01)
PROC: 5A0945A Assistance with Respiratory Ventilation, 24-96 Consecutive Hours, High Flow/Velocity Cannula (ICD-10-PCS; 2022-05-01)
PROC: 5A09357 Assistance with Respiratory Ventilation, Less than 24 Consecutive Hours, Continuous Positive Airway Pressure (ICD-10-PCS; 2022-05-02)
PROC: 5A0945A Assistance with Respiratory Ventilation, 24-96 Consecutive Hours, High Flow/Velocity Cannula (ICD-10-PCS; 2022-05-03)
PROC: 5A1D70Z Performance of Urinary Filtration, Intermittent, Less than 6 Hours Per Day (ICD-10-PCS; 2022-05-04)
PROC: 5A0935A Assistance with Respiratory Ventilation, Less than 24 Consecutive Hours, High Flow/Velocity Cannula (ICD-10-PCS; 2022-05-04)
PROC: 5A09357 Assistance with Respiratory Ventilation, Less than 24 Consecutive Hours, Continuous Positive Airway Pressure (ICD-10-PCS; 2022-05-05)
PROC: 5A0935A Assistance with Respiratory Ventilation, Less than 24 Consecutive Hours, High Flow/Velocity Cannula (ICD-10-PCS; 2022-05-05)
PROC: 5A1D70Z Performance of Urinary Filtration, Intermittent, Less than 6 Hours Per Day (ICD-10-PCS; 2022-05-06)
PROC: 5A09357 Assistance with Respiratory Ventilation, Less than 24 Consecutive Hours, Continuous Positive Airway Pressure (ICD-10-PCS; 2022-05-06)
PROC: 5A0935A Assistance with Respiratory Ventilation, Less than 24 Consecutive Hours, High Flow/Velocity Cannula (ICD-10-PCS; 2022-05-06)
PROC: 0BH17EZ Insertion of Endotracheal Airway into Trachea, Via Natural or Artificial Opening (ICD-10-PCS; 2022-05-07)
PROC: 5A12012 Performance of Cardiac Output, Single, Manual (ICD-10-PCS; 2022-05-07)
PROC: 5A09357 Assistance with Respiratory Ventilation, Less than 24 Consecutive Hours, Continuous Positive Airway Pressure (ICD-10-PCS; 2022-05-07)
PROC: 5A1D70Z Performance of Urinary Filtration, Intermittent, Less than 6 Hours Per Day (ICD-10-PCS; 2022-05-08)
PROC: 5A1D70Z Performance of Urinary Filtration, Intermittent, Less than 6 Hours Per Day (ICD-10-PCS; 2022-05-10)
PROC: 5A1D70Z Performance of Urinary Filtration, Intermittent, Less than 6 Hours Per Day (ICD-10-PCS; 2022-05-12)
PROC: 5A1D70Z Performance of Urinary Filtration, Intermittent, Less than 6 Hours Per Day (ICD-10-PCS; 2022-05-14)
PROC: 5A1D70Z Performance of Urinary Filtration, Intermittent, Less than 6 Hours Per Day (ICD-10-PCS; 2022-05-16)
PROC: 0B110F4 Bypass Trachea to Cutaneous with Tracheostomy Device, Open Approach (ICD-10-PCS; principal; 2022-05-18)
PROC: 5A1D70Z Performance of Urinary Filtration, Intermittent, Less than 6 Hours Per Day (ICD-10-PCS; 2022-05-18)
PROC: 5A12012 Performance of Cardiac Output, Single, Manual (ICD-10-PCS; 2022-05-20)
PROC: 5A1D70Z Performance of Urinary Filtration, Intermittent, Less than 6 Hours Per Day (ICD-10-PCS; 2022-05-20)
DX: A41.9 Sepsis, unspecified organism (principal); I50.33 Acute on chronic diastolic (congestive) heart failure; E43 Unspecified severe protein-calorie malnutrition; I31.9 Disease of pericardium, unspecified; D84.821 Immunodeficiency due to drugs; N17.9 Acute kidney failure, unspecified; J18.9 Pneumonia, unspecified organism; I13.0 Hypertensive heart and chronic kidney disease with heart failure and stage 1 through stage 4 chronic kidney disease, or unspecified chronic kidney disease; E83.39 Other disorders of phosphorus metabolism; E88.09 Other disorders of plasma-protein metabolism, not elsewhere classified; I46.9 Cardiac arrest, cause unspecified; J80 Acute respiratory distress syndrome; E11.22 Type 2 diabetes mellitus with diabetic chronic kidney disease; Z99.81 Dependence on supplemental oxygen; D64.9 Anemia, unspecified; R65.20 Severe sepsis without septic shock; N18.4 Chronic kidney disease, stage 4 (severe); M06.862 Other specified rheumatoid arthritis, left knee; M06.861 Other specified rheumatoid arthritis, right knee; K21.9 Gastro-esophageal reflux disease without esophagitis; K59.00 Constipation, unspecified; M79.7 Fibromyalgia; N04.2 Nephrotic syndrome with diffuse membranous glomerulonephritis; Z20.822 Contact with and (suspected) exposure to COVID-19; E66.01 Morbid (severe) obesity due to excess calories; G47.33 Obstructive sleep apnea (adult) (pediatric); E03.9 Hypothyroidism, unspecified; E78.00 Pure hypercholesterolemia, unspecified; I34.0 Nonrheumatic mitral (valve) insufficiency; E83.42 Hypomagnesemia; E78.5 Hyperlipidemia, unspecified; I16.0 Hypertensive urgency; J98.2 Interstitial emphysema; I25.2 Old myocardial infarction; Z79.4 Long term (current) use of insulin; Z68.42 Body mass index [BMI] 45.0-49.9, adult; Z78.1 Physical restraint status; Z79.899 Other long term (current) drug therapy; Z82.49 Family history of ischemic heart disease and other diseases of the circulatory system; Z99.11 Dependence on respirator [ventilator] status; Z99.2 Dependence on renal dialysis
CPT/HCPCS: 31500; 36415; 36556; 36573; 36600; 71045; 71250; 74018; 76937; 78580; 80048; 80053; 80061; 80197; 80202; 80305; 81003; 82330; 82375; 82550; 82553; 82805; 82962; 83605; 83735; 83880; 84100; 84145; 84443; 84478; 84484; 85025; 85379; 86705; 86709; 86803; 87015; 87045; 87070; 87177; 87209; 87340; 87426; 87427; 87449; 87804; 89055; 92610; 92950; 93005; 93970; 94002; 94003; 94640; 94660; 97162; 97164; 97166; 97168; 97535; 99291; A6261; C1725; C1752; C9113; C9803; J0360; J0456; J0461; J0696; J1644; J1650; J1815; J1940; J2185; J2250; J2270; J2704; J2765; J2920; J2930; J3010; J3370; J3475; J3490; J7030; J7042; J7050; J7060; J7070; J7507; J7608; A5200